=== PATIENT | female | born 1960 | race Caucasian/White ===

== ENCOUNTER → 2017-11-10 01:01 | Outpatient (CLI) | payer BC, SELFPAY ==
[2017-11-10 08:37] LABS: Absolute Basophil Count 0.03 k/cumm (0.0-0.2); Absolute Eosinophil Count 0.14 k/cumm (0.0-0.7); Absolute Lymphocyte Count 1.83 k/cumm (1.2-3.4); Absolute Monocyte Count 0.55 k/cumm (0.11-0.7); Absolute Neutrophil Count 1.76 k/cumm (1.2-6.7); Basophils % 0.7; Eosinophils % 3.2; HCT 42.1 % (36.0-46.0); Lymphocytes % 42.5; Mean Corp. HGB Concentration 33.3 g/dL (32.0-36.0); Mean Corpuscular Hemoglobin 31.2 pg (27.0-33.0); Mean Corpuscular Volume 93.8 fL (80-95); Mean Platelet Volume 10.7 fL (8.0-11.0); Monocytes % 12.8; Neutrophils % 40.8; Platelet Count 145 x1000/uL (130-400); RBC 4.49 m/cumm (4.00-5.20); RBC Distribution Width 13.9 % (11.7-14.6); White Blood Cell Count 4.31 k/cumm (4.4-10.8)
[2017-11-10 08:45] LABS: VALPROIC ACID 56.9 ug/mL (50-100)
[2017-11-10 09:41] LABS: ALT 20 U/L (12-78); AST 24 U/L (15-37); Albumin 3.2 g/dL (3.4-5.0); Alkaline Phosphatase 54 U/L (46-116); Anion Gap 9.6 mmol/L (3-11); BUN 26 mg/dL (7-18); Bilirubin, Total 0.4 mg/dL (0.2-1.0); CO2 27.4 mmol/L (21.0-32.0); CREATININE 1.27 mg/dL (0.55-1.02); Calcium 8.9 mg/dL (8.5-10.1); Chloride 107 mmol/L (98-107); Cholesterol 190 mg/dL (50-200); Estimated GFR 43.53 (mL/min/1.73m2); Glucose 94 mg/dL (70-100); HDL Cholesterol 70 mg/dL (40-60); LDL CHOLESTEROL 102 mg/dL (<100); Potassium 4.5 mmol/L (3.5-5.1); Sodium 144 mmol/L (136-145); TSH (W/Ref FT4) 0.51 uIU/mL (0.358-3.74); Total Protein 6.5 g/dL (6.4-8.2); Triglyceride 66 mg/dL (30-150)
== END ==
PROVIDERS: PCP Nurse Practitioner Family; Visit Provider Nurse Practitioner Family
DX: F31.81 Bipolar II disorder (principal); Z51.81 Encounter for therapeutic drug level monitoring; Z79.899 Other long term (current) drug therapy; R53.83 Other fatigue
CPT/HCPCS: 36415; 80053; 80061; 83721; 80164; 84443; 85025

== ENCOUNTER 2018-02-10 07:24 | Outpatient (CLI) | payer BC, SELFPAY ==
[2018-02-10 08:32] LABS: Abs Immature Grans 0.01 k/cumm (0.0-0.09); Absolute Basophil Count 0.03 k/cumm (0.0-0.2); Absolute Lymphocyte Count 1.58 k/cumm (1.2-3.4); Absolute Monocyte Count 0.45 k/cumm (0.11-0.7); Absolute Neutrophil Count 1.51 k/cumm (1.2-6.7); Basophils % 0.8; Eosinophils % 2.7; HCT 38.1 % (36.0-46.0); HGB 12.4 g/dL (12.0-15.5); Immature Grans % 0.3; Lymphocytes % 42.9; Mean Corp. HGB Concentration 32.5 g/dL (32.0-36.0); Mean Corpuscular Hemoglobin 29.4 pg (27.0-33.0); Mean Corpuscular Volume 90.3 fL (80-95); Mean Platelet Volume 10.2 fL (8.0-11.0); Monocytes % 12.2; Neutrophils % 41.1; Platelet Count 211 x1000/uL (130-400); RBC 4.22 m/cumm (4.00-5.20); RBC Distribution Width 15.1 % (11.7-14.6); White Blood Cell Count 3.68 k/cumm (4.4-10.8)
[2018-02-10 08:44] LABS: VALPROIC ACID 52.5 ug/mL (50-100)
[2018-02-10 08:55] LABS: ALT 19 U/L (12-78); AST 22 U/L (15-37); Albumin 3.1 g/dL (3.4-5.0); Alkaline Phosphatase 57 U/L (46-116); Anion Gap 6.1 mmol/L (3-11); BUN 17 mg/dL (7-18); Bilirubin, Total 0.4 mg/dL (0.2-1.0); CO2 28.9 mmol/L (21.0-32.0); CREATININE 1.32 mg/dL (0.55-1.02); Calcium 8.8 mg/dL (8.5-10.1); Chloride 106 mmol/L (98-107); Estimated GFR 41.63 (mL/min/1.73m2); Glucose 97 mg/dL (70-100); Potassium 4.4 mmol/L (3.5-5.1); Sodium 141 mmol/L (136-145); Total Protein 6.6 g/dL (6.4-8.2)
== END 2018-02-10 07:44 ==
PROVIDERS: PCP Nurse Practitioner Family; Visit Provider Nurse Practitioner Family
DX: F31.81 Bipolar II disorder (principal); Z51.81 Encounter for therapeutic drug level monitoring; Z79.899 Other long term (current) drug therapy
CPT/HCPCS: 36415; 80053; 80164; 85025

== ENCOUNTER 2018-04-18 19:15 | Outpatient (REF) | payer BC, SELFPAY | END 2018-04-18 19:35 | LOC: NCHCN 19:15 | PROVIDERS: PCP Nurse Practitioner Family; Visit Provider Nurse Practitioner Family | DX: N89.8 Other specified noninflammatory disorders of vagina (principal) | CPT/HCPCS: 87480; 87510; 87660 ==

== ENCOUNTER 2018-06-03 08:31 | Outpatient (CLI) | payer BC, SELFPAY ==
--- NOTE | 2018-06-03 08:23 | DI.RAD_ITS ---
SYMPTOM/DIAGNOSIS: LATERAL PAIN, F/U RT TKA RIGHT KNEE: Two views were obtained. There is a total knee joint replacement in position. The components appear well seated. No other significant bony abnormality is seen.
== END 2018-06-03 08:51 ==
PROVIDERS: PCP Nurse Practitioner Family; Visit Provider Student in an Organized Health Care Education/Training Program
DX: M25.561 Pain in right knee (principal); Z96.651 Presence of right artificial knee joint; Z47.1 Aftercare following joint replacement surgery
CPT/HCPCS: 73560

== ENCOUNTER 2018-08-19 03:55 | Outpatient (CLI) | payer BC, SELFPAY ==
[2018-08-19 08:59] LABS: HGB 13.4 g/dL (12.0-15.5); Mean Corp. HGB Concentration 32.7 g/dL (32.0-36.0); Mean Corpuscular Hemoglobin 31.5 pg (27.0-33.0); Mean Corpuscular Volume 96.2 fL (80-95); Mean Platelet Volume 10.2 fL (8.0-11.0); Platelet Count 157 x1000/uL (130-400); RBC 4.26 m/cumm (4.00-5.20); RBC Distribution Width 13.9 % (11.7-14.6)
[2018-08-19 09:40] LABS: ALT 20 U/L (12-78); AST 20 U/L (15-37); Albumin 3.2 g/dL (3.4-5.0); Alkaline Phosphatase 56 U/L (46-116); Anion Gap 6.2 mmol/L (3-11); BUN 19 mg/dL (7-18); Bilirubin, Total 0.3 mg/dL (0.2-1.0); CO2 29.8 mmol/L (21.0-32.0); CREATININE 1.22 mg/dL (0.55-1.02); Chloride 105 mmol/L (98-107); Estimated GFR 45.43 (mL/min/1.73m2); Glucose 92 mg/dL (70-100); Potassium 4.4 mmol/L (3.5-5.1); Sodium 141 mmol/L (136-145); Total Protein 6.5 g/dL (6.4-8.2)
[2018-08-19 16:51] LABS: VALPROIC ACID 56.4 ug/mL (50-100)
== END 2018-08-19 04:15 ==
PROVIDERS: PCP Nurse Practitioner Family; Visit Provider Nurse Practitioner Family
DX: F31.81 Bipolar II disorder (principal); Z79.899 Other long term (current) drug therapy; Z51.81 Encounter for therapeutic drug level monitoring
CPT/HCPCS: 36415; 80053; 85027; 80164

== ENCOUNTER 2019-01-17 13:18 | Outpatient (REF) | payer BC, SELFPAY ==
[2019-01-17 14:30] LABS: Abs Immature Grans 0.01 k/cumm (0.0-0.09); Absolute Basophil Count 0.04 k/cumm (0.0-0.2); Absolute Eosinophil Count 0.22 k/cumm (0.0-0.7); Absolute Lymphocyte Count 1.43 k/cumm (1.2-3.4); Absolute Monocyte Count 0.45 k/cumm (0.11-0.7); Absolute Neutrophil Count 1.67 k/cumm (1.2-6.7); Eosinophils % 5.8; HCT 39.4 % (36.0-46.0); HGB 12.9 g/dL (12.0-15.5); Immature Grans % 0.3; Lymphocytes % 37.4; Mean Corp. HGB Concentration 32.7 g/dL (32.0-36.0); Mean Corpuscular Hemoglobin 31.9 pg (27.0-33.0); Mean Corpuscular Volume 97.5 fL (80-95); Monocytes % 11.8; Neutrophils % 43.7; Platelet Count 212 x1000/uL (130-400); RBC 4.04 m/cumm (4.00-5.20); RBC Distribution Width 13.2 % (11.7-14.6); White Blood Cell Count 3.82 k/cumm (4.4-10.8)
[2019-01-17 14:45] LABS: VALPROIC ACID 58.9 ug/mL (50-100)
[2019-01-17 14:51] LABS: ALT 16 U/L (14-59); AST 22 U/L (15-37); Albumin 3.4 g/dL (3.4-5.0); Alkaline Phosphatase 57 U/L (46-116); Anion Gap 8.9 mmol/L (3-11); BUN 18 mg/dL (7-18); Bilirubin, Total 0.3 mg/dL (0.2-1.0); CO2 30.1 mmol/L (21.0-32.0); CREATININE 1.26 mg/dL (0.55-1.02); Calcium 8.8 mg/dL (8.5-10.1); Chloride 106 mmol/L (98-107); Estimated GFR 43.77 (mL/min/1.73m2); Glucose 93 mg/dL (70-100); Potassium 4.4 mmol/L (3.5-5.1); Sodium 145 mmol/L (136-145); TSH 3.45 uIU/mL (0.36-3.74); Total Protein 6.8 g/dL (6.4-8.2)
== END 2019-01-17 13:38 ==
LOC: NCHCN 13:18
PROVIDERS: PCP Nurse Practitioner Family; Visit Provider Nurse Practitioner Family
DX: F31.81 Bipolar II disorder (principal); Z51.81 Encounter for therapeutic drug level monitoring; Z79.899 Other long term (current) drug therapy; Z00.00 Encounter for general adult medical examination without abnormal findings; M62.81 Muscle weakness (generalized)
CPT/HCPCS: 80053; 80164; 84443; 85025

== ENCOUNTER 2019-05-05 12:07 | Outpatient (REF) | payer BC, SELFPAY ==
[2019-05-05 14:45] LABS: Absolute Basophil Count 0.02 k/cumm (0.0-0.2); Absolute Eosinophil Count 0.17 k/cumm (0.0-0.7); Absolute Lymphocyte Count 1.25 k/cumm (1.2-3.4); Absolute Monocyte Count 0.62 k/cumm (0.11-0.7); Absolute Neutrophil Count 2.01 k/cumm (1.2-6.7); Basophils % 0.5; Eosinophils % 4.2; HCT 42.7 % (36.0-46.0); Lymphocytes % 30.7; Mean Corp. HGB Concentration 32.8 g/dL (32.0-36.0); Mean Corpuscular Hemoglobin 31.3 pg (27.0-33.0); Mean Corpuscular Volume 95.3 fL (80-95); Mean Platelet Volume 11.7 fL (8.0-11.0); Monocytes % 15.2; Neutrophils % 49.4; Platelet Count 172 x1000/uL (130-400); RBC 4.48 m/cumm (4.00-5.20); RBC Distribution Width 13.7 % (11.7-14.6); White Blood Cell Count 4.07 k/cumm (4.4-10.8)
[2019-05-05 14:55] LABS: VALPROIC ACID 49.8 ug/mL (50-100)
[2019-05-05 15:01] LABS: ALT 20 U/L (14-59); AST 21 U/L (15-37); Albumin 3.4 g/dL (3.4-5.0); Alkaline Phosphatase 58 U/L (46-116); BUN 17 mg/dL (7-18); Bilirubin, Total 0.5 mg/dL (0.2-1.0); CREATININE 1.27 mg/dL (0.55-1.02); Calcium 8.5 mg/dL (8.5-10.1); Calculated LDL 117 mg/dL; Chloride 106 mmol/L (98-107); Cholesterol 182 mg/dL (<200); Estimated GFR 43.22 (mL/min/1.73m2); Glucose 99 mg/dL (74-106); HDL Cholesterol 56 mg/dL (40-60); Potassium 4.5 mmol/L (3.5-5.1); Sodium 142 mmol/L (136-145); Total Protein 6.6 g/dL (6.4-8.2); Triglyceride 48 mg/dL (<150)
== END 2019-05-05 12:27 ==
LOC: NCHCN 12:07
PROVIDERS: PCP Nurse Practitioner Family; Visit Provider Nurse Practitioner Family
DX: F31.9 Bipolar disorder, unspecified (principal); Z51.81 Encounter for therapeutic drug level monitoring; Z79.899 Other long term (current) drug therapy; Z00.00 Encounter for general adult medical examination without abnormal findings; Z13.220 Encounter for screening for lipoid disorders; Z13.228 Encounter for screening for other metabolic disorders
CPT/HCPCS: 80053; 80061; 80164; 85025

== ENCOUNTER 2019-05-30 02:07 | Outpatient (CLI) | payer BC, SELFPAY ==
--- NOTE | 2019-05-30 | DI.MAMMO_ITS ---
EXAM: MG MAMMO SCREENING CLINICAL HISTORY: SCREENING, Z12.31. TECHNIQUE: Bilateral full field digital CC and MLO mammographic images were obtained with 3D tomosyn thesis and utilizing computer aided detection (CAD). COMPARISON: Available for comparison. FINDINGS: Masses/Architectural Distortion: None seen. Microcalcifications: No suspicious pleomorphic-type are seen. Skin Thickening/Nipple Retraction: None. IMPRESSION: 1. No significant interval change with no specific features of malignancy noted. 2. Unless there is more urgent need, screening mammography is recommended, as per [place] guidelines. ACR BI-RAD Category- 1 Negative Breast Density - Category B - Scattered areas of fibroglandular density A negative radiographic report should not delay biopsy if a dominant or clinically suspicious mass is present. Up to ten percent of cancers are not identified on mammography. A negative report may reinforce clinical impression. Adenosis and dense breasts may obscure an underlying neoplasm. False positive reports average 6 to 10%. Patient will receive a letter notifying them of these results.
== END 2019-05-30 02:27 ==
PROVIDERS: PCP Nurse Practitioner Family; Visit Provider Nurse Practitioner Family
DX: Z12.31 Encounter for screening mammogram for malignant neoplasm of breast (principal)
CPT/HCPCS: 77063; 77067

== ENCOUNTER 2019-06-12 13:08 | Outpatient (REF) | payer BC, SELFPAY | END 2019-06-12 13:28 | LOC: LBN 13:08 | PROVIDERS: PCP Nurse Practitioner Family; Visit Provider Nurse Practitioner Family | DX: K13.79 Other lesions of oral mucosa (principal); R68.89 Other general symptoms and signs | CPT/HCPCS: 87070; 87205 ==

== ENCOUNTER 2019-06-12 13:10 | Outpatient (REF) | payer BC, SELFPAY ==
--- NOTE | 2019-06-12 09:30 | SKI_PTH ---
PATIENT: Stephanie Shannon LOC: [facility] U#:[id number] AGE/SX: 59/F ROOM: RE06/12/[address]: Palomo Arvizu : 1960 BED: DIS: 06/12/2019 SPEC #: [id number] RECD: 06/12/19 17:27 STATUS: AKBAR MARTINES #: [id number] NEGRO: 06/12/19 09:[address]: Palomo Arvizu DEPT: Surgical Specimen RECD BY: Anna Andino Tissues: 1 - SKIN BIOPSY(SHAVE/PUNCH) Procedures: SKIN LEVEL 4 Comments: [id number]
== END 2019-06-12 13:30 ==
LOC: NCHCN 13:10
PROVIDERS: PCP Nurse Practitioner Family; Visit Provider Nurse Practitioner Family
DX: B07.8 Other viral warts (principal)
CPT/HCPCS: 88305

== ENCOUNTER 2019-09-08 09:28 | Outpatient (CLI) | payer BC, SELFPAY ==
--- NOTE | 2019-09-08 11:10 | DI.RAD_ITS ---
EXAM: XR KNEE LT 3V AP,LAT,LARISSA CLINICAL HISTORY: LT KNEE PAIN, M25.562. TECHNIQUE: 2D digital imaging was performed. COMPARISON: CR XR knee RT 2V AP,lat from 06/03/2018 FINDINGS: There is prominent chondrocalcinosis. There is mild periarticular spurring. There is mild medial fe moral tibial joint space narrowing. There is there is spurring at the articular aspect of the patell a and patellofemoral joint space narrowing. There is a small joint effusion.. IMPRESSION: Degenerative changes and chondrocalcinosis. DATA REPOSITORY: RADIATION DOSE DELIVERED:
== END 2019-09-08 09:48 ==
PROVIDERS: PCP Nurse Practitioner Family; Visit Provider Nurse Practitioner Family
DX: M25.562 Pain in left knee (principal); M25.462 Effusion, left knee; M17.12 Unilateral primary osteoarthritis, left knee
CPT/HCPCS: 73562

== ENCOUNTER 2020-02-23 08:59 | Outpatient (REF) | payer BC, SELFPAY ==
[2020-02-23 21:54] LABS: Abs Immature Grans 0.02 10^3/uL (0.0-0.06); Absolute Basophil Count 0.03 10^3/uL (0.0-0.2); Absolute Eosinophil Count 0.19 10^3/uL (0.0-0.7); Absolute Lymphocyte Count 1.62 10^3/uL (1.2-3.4); Absolute Monocyte Count 0.58 10^3/uL (0.1-0.8); Basophils % 0.7; Eosinophils % 4.2; HCT 40.8 % (36.0-46.0); HGB 13.3 g/dL (11.2-15.7); Immature Grans % 0.4; Lymphocytes % 35.7; MCH 30.9 pg (27.0-33.0); MCHC 32.6 % (32.0-36.0); MCV 94.9 fL (80-95); MPV 11.2 fL (8.0-11.0); Monocytes % 12.8; Neutrophils % 46.2; Nucleated RBC 0 %; Platelet Count 208 10^3/uL (130-400); RDW 13.4 % (11.7-14.6); RDW-SD 46.9 fL; WBC 4.54 10^3/uL (4.4-10.8)
[2020-02-23 22:33] LABS: ALT 17 U/L (14-59); AST 25 U/L (15-37); Albumin 3.3 g/dL (3.4-5.0); Alkaline Phosphatase 61 U/L (46-116); Anion Gap 8.6 mmol/L (3-11); BUN 20 mg/dL (7-18); Bilirubin, Total 0.3 mg/dL (0.2-1.0); CO2 28.4 mmol/L (21.0-32.0); CREATININE 1.16 mg/dL (0.55-1.02); Calcium 8.9 mg/dL (8.5-10.1); Calculated LDL 103 mg/dL (<100); Chloride 106 mmol/L (98-107); Cholesterol 179 mg/dL (<200); Estimated GFR 47.98 (mL/min/1.73m2); Glucose 88 mg/dL (74-106); HDL Cholesterol 67 mg/dL (40-60); Potassium 4.6 mmol/L (3.5-5.1); Sodium 143 mmol/L (136-145); Total Protein 6.7 g/dL (6.4-8.2); Triglyceride 49 mg/dL (<150)
[2020-02-23 23:17] LABS: VALPROIC ACID 58.3 ug/mL (50-100)
== END 2020-02-23 09:19 ==
LOC: NCHCN 08:59
PROVIDERS: PCP Nurse Practitioner Family; Visit Provider Nurse Practitioner Family
DX: F31.81 Bipolar II disorder (principal); Z79.899 Other long term (current) drug therapy; Z51.81 Encounter for therapeutic drug level monitoring; Z00.00 Encounter for general adult medical examination without abnormal findings
CPT/HCPCS: 80053; 80061; 80164; 85025

== ENCOUNTER 2020-06-21 15:12 | Outpatient (REF) | payer BC, SELFPAY ==
[2020-06-21 15:48] LABS: ALT 22 U/L (14-59); AST 24 U/L (15-37); Albumin 3.2 g/dL (3.4-5.0); Alkaline Phosphatase 65 U/L (46-116); Anion Gap 9.1 mmol/L (3-11); BUN 23 mg/dL (7-18); Bilirubin, Total 0.3 mg/dL (0.2-1.0); CO2 27.9 mmol/L (21.0-32.0); CREATININE 1.2 mg/dL (0.55-1.02); Calcium 9.1 mg/dL (8.5-10.1); Chloride 106 mmol/L (98-107); Estimated GFR 45.98 (mL/min/1.73m2); Glucose 83 mg/dL (74-106); Potassium 4.4 mmol/L (3.5-5.1); Sodium 143 mmol/L (136-145); TSH (W/Ref FT4) 1.06 uIU/mL (0.36-3.74); Total Protein 6.7 g/dL (6.4-8.2)
[2020-06-21 16:01] LABS: Folate > 20.0 ng/mL (8.6-20.0)
[2020-06-24 11:53] LABS: HIV-1/2 Ag & Ab Screen Negative (Negative)
== END 2020-06-21 15:13 | disposition home or self-care (01) ==
LOC: NCHCN 15:12
PROVIDERS: PCP Nurse Practitioner Family; Visit Provider Nurse Practitioner Family
DX: F31.9 Bipolar disorder, unspecified (principal); E03.9 Hypothyroidism, unspecified; Z11.4 Encounter for screening for human immunodeficiency virus [HIV]
CPT/HCPCS: 80053; 87389; 82746; 84443

== ENCOUNTER 2020-12-25 11:15 | Outpatient (CLI) | payer BC, SELFPAY ==
--- NOTE | 2020-12-25 | DI.RAD_ITS ---
Exam(s) XR KNEE LT 3V AP,LAT,LARISSA EXAM: XR KNEE LT 3V AP,LAT,LARISSA CLINICAL HISTORY: LT KNEE PAIN M25.562. TECHNIQUE: 2D digital imaging was performed. COMPARISON: CR XR KNEE LT 3V AP,LAT,LARISSA from 09/08/2019 FINDINGS: Moderate degenerative changes are seen in the left knee with joint space narrowing and periarticular spurring present. There is chondrocalcinosis in the femoral tibial joint. The bones are normally mi neralized. No acute fracture or subluxation is present. No significant joint effusion is seen. The soft tissues are unremarkable. IMPRESSION: Moderate degenerative changes of the left knee. DATA REPOSITORY: RADIATION DOSE DELIVERED:
== END 2020-12-25 11:35 ==
PROVIDERS: PCP Nurse Practitioner Family; Visit Provider Physician Assistant Medical
DX: M25.562 Pain in left knee (principal); M17.12 Unilateral primary osteoarthritis, left knee
CPT/HCPCS: 73562

== ENCOUNTER 2021-06-16 18:18 | Outpatient (REF) | payer BC, SELFPAY ==
[2021-06-16 19:57] LABS: VALPROIC ACID 39.7 ug/mL
[2021-06-16 20:02] LABS: HCT 36.2 % (36.0-46.0); HGB 11.3 g/dL (11.2-15.7); MCH 25.9 pg (27.0-33.0); MCHC 31.2 % (32.0-36.0); MCV 82.8 fL (80-95); MPV 10.8 fL (8.0-11.0); Platelet Count 240 10^3/uL (130-400); RBC 4.37 10^6/uL (3.93-5.22); RDW 16.7 % (11.7-14.6); RDW-SD 50.4 fL
[2021-06-16 20:06] LABS: TSH 2.58 uIU/mL (0.36-3.74)
[2021-06-16 20:11] LABS: Folate > 20.0 ng/mL (8.6-20.0)
== END 2021-06-16 18:19 | disposition home or self-care (01) ==
LOC: NCHCN 18:18
PROVIDERS: Nurse Practitioner Psychiatric/Mental Health; PCP Nurse Practitioner Family; Visit Provider Physician Assistant
DX: E03.9 Hypothyroidism, unspecified (principal); F31.81 Bipolar II disorder; Z51.81 Encounter for therapeutic drug level monitoring; Z79.899 Other long term (current) drug therapy
CPT/HCPCS: 85027; 80164; 82746; 83735; 84443

== ENCOUNTER 2021-06-16 18:42 | Outpatient (REF) | payer BC, SELFPAY | END 2021-06-16 18:43 | disposition home or self-care (01) | LOC: NCHCN 18:42 | PROVIDERS: PCP Nurse Practitioner Family; Visit Provider Physician Assistant ==

== ENCOUNTER 2021-06-19 16:04 | Outpatient (REF) | payer BC, SELFPAY ==
[2021-06-19 14:44] LABS: ALT 25 U/L (14-59); AST 28 U/L (15-37); Albumin 3.2 g/dL (3.4-5.0); Alkaline Phosphatase 74 U/L (46-116); Anion Gap 9.2 mmol/L (3-11); BUN 20 mg/dL (7-18); Bilirubin, Total 0.3 mg/dL (0.2-1.0); CO2 28.8 mmol/L (21.0-32.0); CREATININE 1.2 mg/dL (0.55-1.02); Calcium 8.8 mg/dL (8.5-10.1); Calculated LDL 107 mg/dL (<100); Chloride 104 mmol/L (98-107); Cholesterol 181 mg/dL (<200); Estimated GFR 45.83 (mL/min/1.73m2); Glucose 76 mg/dL (74-106); HDL Cholesterol 62 mg/dL (40-60); Potassium 4.2 mmol/L (3.5-5.1); Sodium 142 mmol/L (136-145); Triglyceride 64 mg/dL (<150)
== END 2021-06-19 16:05 | disposition home or self-care (01) ==
LOC: NCHCN 16:04
PROVIDERS: PCP Nurse Practitioner Family; Visit Provider Physician Assistant
DX: F31.9 Bipolar disorder, unspecified (principal)
CPT/HCPCS: 80053; 80061

== ENCOUNTER 2021-06-27 00:36 | Outpatient (CLI) | payer BC, SELFPAY ==
--- NOTE | 2021-06-27 | DI.RAD_ITS ---
Exam(s) RF BARIUM SWALLOW EXAM: RF BARIUM SWALLOW CLINICAL HISTORY: CHRONIC DYSPHAGIA,R13.10 TECHNIQUE: 2D and realtime digital imaging was performed. COMPARISON: CR ABDOMEN 2 VIEW FLAT, UPRIGHT from 03/23/2014 FINDINGS: Preliminary films of the chest and neck are unremarkable. Barium was ingested and showed grossly nor mal hypo pharyngeal motility. Esophagus shows normal motility and mucosal appearance. 12 millimeter barium tablet passed easily through the esophagus into the stomach. IMPRESSION: Negative barium swallow. RADIATION DOSE DELIVERED: tom Calles=23.8 mGy
[2021-06-27] MEDS: Barium Sulfate 60% W/V 355 ML BTL PO (11:57)
== END 2021-06-27 00:56 ==
PROVIDERS: PCP Nurse Practitioner Family; Visit Provider Physician Assistant
DX: R13.10 Dysphagia, unspecified (principal)
CPT/HCPCS: 74221

== ENCOUNTER → 2021-09-03 03:55 | Outpatient (CLI) | payer BC, SELFPAY ==
--- NOTE | 2021-09-03 17:50 | DI.MAMMO_ITS ---
Exam(s) MAMMO SCREENING EXAM: MAMMO SCREENING CLINICAL HISTORY: SCREENING FOR BREAST CANCER Z12.39 TECHNIQUE: Bilateral full field digital CC and MLO mammographic images were obtained with 3D tomosyn thesis and utilizing computer aided detection (CAD). COMPARISON: Available for comparison. FINDINGS: Masses/Architectural Distortion: There is a question of a asymmetric density projected over the pecto ralis muscle on the MLO view. This area should be further evaluated with spot compression view. Microcalcifications: No suspicious pleomorphic-type are seen. Skin Thickening/Nipple Retraction: None. IMPRESSION: 1. Question of asymmetric density projected over the pectoralis muscle on the left MLO view. 2. Spot compression views requested for further evaluation. Ultrasound may be indicated at that time . BI-RADS Category 0 - Assessment Incomplete: Need additional imaging evaluation Breast Density - Category B - Scattered areas of fibroglandular density Breast density category C or D implies that the patient has dense breast tissue. Dense breast tissue is very common and is not abnormal but dense breast tissue can make it harder to find cancer on a ma mmogram. Also, dense breast tissue may increase their breast cancer risk. This information about the result of the mammogram report was provided to the patient to raise their awareness. Use this report when you speak with the patient about their risks for breast cancer, which includes their family hist ory. At that time, you may recommend for more screening tests (Ultrasound or MRI) as they might be us eful based on their risk. A negative radiographic report should not delay biopsy if a dominant or clinically suspicious mass is present. Up to ten percent of cancers are not identified on mammography. A negative report may reinforce clinical impression. Adenosis and dense breasts may obscure an underlying neoplasm. False positive reports average 6 to 10%. Patient will receive a letter notifying them of these results.
== END ==
PROVIDERS: PCP Physician Assistant; Visit Provider Physician Assistant
DX: Z12.31 Encounter for screening mammogram for malignant neoplasm of breast (principal); R92.8 Other abnormal and inconclusive findings on diagnostic imaging of breast
CPT/HCPCS: 77063; 77067

== ENCOUNTER → 2021-09-11 01:33 | Outpatient (CLI) | payer BC, SELFPAY ==
--- NOTE | 2021-09-11 | DI.US_ITS ---
Exam(s) MG MAMMO SCREEN CALL BACK UNI US BREAST LT COMPLETE EXAM: MG MAMMO SCREEN CALL BACK UNI -LEFT AND COMPLETE LEFT BREAST ULTRASOUND CLINICAL HISTORY: F/U ABNL MAMMO, ? ASYMMETRIC DENSITY OVER PECTORALIS MUSCLE. TECHNIQUE: Unilateral spot mammographic images obtained with 3D tomosynthesisand utilizing computer aided detection (CAD). . Complete LEFT breast Ultrasound was also performed, including all 4 quadrants, the retroareolar regio n, and the ipsilateral axilla. COMPARISON: Prior mammograms were reviewed. This additional imaging was performed due to findings described on the recent screening mammogram of 09/03/2021. FINDINGS: DIAGNOSTIC LEFT BREAST MAMMOGRAM: Additional mammographic views performed todayrender this area less concerning.This additional view ap pears to dissipate the finding up again suggest wall described on the recent screening mammogram. COMPLETE LEFT BREAST ULTRASOUND: Ultrasound performed today reveals a 3 millimeter benign microcyst at the 3 o'clock position 1 o'cloc k position there are 2 adjacent deep findings which upon careful scanning have more the appearance of probable asymmetric deep tissue more so than actual true concerning nodules. Larger of these 2 larisa cent findings measures 9 x 4 millimeters. The smaller measures 4 x 2 millimeters. Both exhibit slig htly increased through transmission without concerning decreased through transmission. No other focal ultrasound findings in the 4 quadrants. In the left axilla there is a 1.3 cm lymph no de noted.. IMPRESSION: 1. No mammographic evidence of malignancy in the left breast. 2. Incidental ultrasound findings at the 1 o'clock position of the left breast as described above whi ch require follow-up ultrasound in 6 months. 3. 1.3 cm lymph node in the left axilla, probably benign Appropriate follow-up , as discussed by myself with the patient today is repeat left breast ultrasoun d in 6 months. The patient was informed of these findings and recommendations prior to leaving the department today. BI-RADS Category 3 - 6 month - Probably Benign Finding: Recommend follow-up mammography in 6 months Breast Density - Category B - Scattered areas of fibroglandular density Breast density Category C or D implies that the patient has dense breast tissue. Dense breast tissue can make it harder to find cancer on a mammogram. Dense breast tissue is also associated with an incr eased risk of breast cancer. This information about the result of the mammogram report was provided to the patient to raise their awareness. Use this report when you speak with the patient about their risks for breast cancer, which includes their family history. At that time, you may recommend additional screening tests (Ultrasoun d or MRI) as these tests may add significant information. A negative radiographic report should not delay biopsy if a dominant or clinically suspicious mass is present. Up to ten percent of cancers are not identified on mammography. A negative report may reinforce clinical impression. Adenosis and dense breasts may obscure an underlying neoplasm. False positive reports average 6 to 10%. Patient will receive a letter notifying them of these results.
== END ==
PROVIDERS: PCP Physician Assistant; Visit Provider Physician Assistant
DX: Z12.31 Encounter for screening mammogram for malignant neoplasm of breast (principal); R92.8 Other abnormal and inconclusive findings on diagnostic imaging of breast; N60.02 Solitary cyst of left breast; N60.82 Other benign mammary dysplasias of left breast; N63.32 Unspecified lump in axillary tail of the left breast
CPT/HCPCS: 76642; 77063; 77067

== ENCOUNTER → 2021-10-03 12:01 | Outpatient (CLI) | payer BC, SELFPAY ==
--- NOTE | 2021-10-03 | DI.RAD_ITS ---
Exam(s) XR KNEE RT 3V AP,LAT,LARISSA EXAM: XR KNEE RT 3V AP,LAT,LARISSA CLINICAL HISTORY: RIGHT KNEE JOINT PAIN--M25.561. TECHNIQUE: 2D digital imaging was performed of the right knee. Three views obtained. AP, lateral an d PA tunnel views were obtained. COMPARISON: CR XR knee RT 2V AP,lat from 06/03/2018 FINDINGS: BONES: No acute fracture is present. No bony destructive lesion is seen. JOINTS: There are stable postsurgical changes of a right total knee replacement. No joint effusion i s seen. SOFT TISSUE: Normal. IMPRESSION: No acute abnormality. DATA REPOSITORY: RADIATION DOSE DELIVERED:
== END ==
PROVIDERS: PCP Physician Assistant; Visit Provider Physician Assistant
DX: M25.561 Pain in right knee (principal); Z96.651 Presence of right artificial knee joint
CPT/HCPCS: 73562

== ENCOUNTER 2021-10-31 08:10 | Outpatient (CLI) | payer OTHER, SELFPAY ==
--- NOTE | 2021-10-31 07:59 | DI.RAD_ITS ---
Exam(s) XR KNEE RT 1V EXAM: XR KNEE RT 1V CLINICAL HISTORY: right knee pain, merchant view only. TECHNIQUE: 2D digital imaging was performed. One views. COMPARISON: CR XR KNEE RT 3V AP,LAT,LARISSA from 10/03/2021 FINDINGS: A single Merchant view was performed. A total knee prosthesis is noted. The patella appears normall y positioned. DATA REPOSITORY: RADIATION DOSE DELIVERED:
== END 2021-10-31 08:11 | disposition home or self-care (01) ==
LOC: DIORS 08:10
PROVIDERS: PCP Physician Assistant; Referring Provider Physician Assistant; Visit Provider Student in an Organized Health Care Education/Training Program
DX: M25.561 Pain in right knee (principal)
CPT/HCPCS: 73560

== ENCOUNTER 2021-12-23 14:42 | Outpatient (REF) | payer OTHER, SELFPAY ==
[2021-12-23 18:37] LABS: VALPROIC ACID 70.6 ug/mL
== END 2021-12-23 14:43 | disposition home or self-care (01) ==
LOC: LBN 14:42
PROVIDERS: PCP Physician Assistant; Visit Provider Nurse Practitioner Psychiatric/Mental Health
DX: F31.81 Bipolar II disorder (principal)
CPT/HCPCS: 80164

== ENCOUNTER → 2022-01-09 10:55 | Outpatient (CLI) | payer OTHER, SELFPAY ==
--- NOTE | 2022-01-09 11:32 | DI.RAD_ITS ---
Exam(s) XR FOOT RT COMPLETE EXAM: XR FOOT RT COMPLETE CLINICAL HISTORY: RT HEEL PAIN M79.671 TECHNIQUE: COMPARISON: CR RIGHT FOOT COMPLETE from 01/18/2015 FINDINGS: Three views were obtained. There is a hallux valgus deformity which is moderate. There are mild sec ondary degenerative changes at the 1st MTP joint. There appear to be fusions of the PIP joints of the 2nd and 3rd toes. There is subluxation at the PI P joint of the 5th toe. Alignment of the hindfoot and midfoot appears within normal limits. No other significant bony abnorm ality seen. IMPRESSION: RADIATION DOSE DELIVERED: Total DLP
== END ==
PROVIDERS: PCP Physician Assistant; Visit Provider Physician Assistant Medical
DX: M20.11 Hallux valgus (acquired), right foot (principal); S93.101A Unspecified subluxation of right toe(s), initial encounter; X58.XXXA Exposure to other specified factors, initial encounter
CPT/HCPCS: 73630

== ENCOUNTER 2022-10-09 15:36 | Outpatient (REF) | payer OTHER, SELFPAY ==
[2022-10-09 18:45] LABS: HCT 43.8 % (36.0-46.0); HGB 13.9 g/dL (11.2-15.7); MCH 31.1 pg (27.0-33.0); MCHC 31.7 % (32.0-36.0); MCV 98 fL (80-95); Platelet Count 178 10^3/uL (130-400); RBC 4.47 10^6/uL (3.93-5.22); RDW 13.7 % (11.7-14.6); RDW-SD 50.1 fL; WBC 4.66 10^3/uL (4.4-10.8)
[2022-10-09 19:05] LABS: ALT 25 U/L (14-59); AST 30 U/L (15-37); Alkaline Phosphatase 66 U/L (46-116); BUN 25 mg/dL (7-18); Bilirubin, Total 0.4 mg/dL (0.2-1.0); CREATININE 1.3 mg/dL (0.55-1.02); Calcium 8.8 mg/dL (8.5-10.1); Calculated LDL 116 mg/dL (<100); Chloride 108 mmol/L (98-107); Cholesterol 192 mg/dL (<200); Estimated GFR 46.78 (mL/min/1.73m2); Glucose 86 mg/dL (74-106); HDL Cholesterol 64 mg/dL (40-60); Potassium 4.5 mmol/L (3.5-5.1); Sodium 144 mmol/L (136-145); Total Protein 6.9 g/dL (6.4-8.2); Triglyceride 61 mg/dL (<150)
== END 2022-10-09 15:37 | disposition home or self-care (01) ==
LOC: NCHCN 15:36
PROVIDERS: PCP Physician Assistant; Visit Provider Physician Assistant
DX: E03.9 Hypothyroidism, unspecified (principal); F31.31 Bipolar disorder, current episode depressed, mild
CPT/HCPCS: 80053; 80061; 85027; 84443

== ENCOUNTER 2022-10-14 01:53 | Outpatient (CLI) | payer OTHER, SELFPAY ==
--- NOTE | 2022-10-14 09:30 | DI.MAMMO_ITS ---
Exam(s) MAMMO DIAGNOSTIC BI EXAM: MAMMO DIAGNOSTIC BI CLINICAL HISTORY: 6-MO F/U ABNL MAMMOGRAPHY, R92.8 TECHNIQUE: Mammograms were interpreted according to the usual protocol including computer analysis w ith CAD system, tomosynthesis and C-view imaging. COMPARISON: 2013 through 2021, six-month follow-up of the left breast and annual screening of the ri ght breast. FINDINGS: The breasts are composed of scattered fibroglandular densities, Breast Density category B. No suspicious masses or suspicious microcalcifications are seen. The previously questioned density o verlying the left pectoral muscle is not seen on current exam. No skin thickening or abnormal axillary lymph nodes are seen. There has been no significant change from prior exams. IMPRESSION: BI-RADS Category 1, Negative mammogram Yearly screening mammography is recommended. Breast Density - Category B, scattered fibroglandular densities. A negative radiographic report should not delay biopsy if a dominant or clinically suspicious mass is present. Up to ten percent of cancers are not identified on mammography. A negative report may reinforce clinical impression. Adenosis and dense breasts may obscure an underlying neoplasm. False positive reports average 6 to 10%. Patient will receive a letter notifying them of these results.
== END 2022-10-14 02:13 ==
LOC: DI 01:53
PROVIDERS: PCP Physician Assistant; Visit Provider Physician Assistant
DX: Z12.31 Encounter for screening mammogram for malignant neoplasm of breast (principal)
CPT/HCPCS: 77062; 77066; G0279

== ENCOUNTER → 2023-07-14 03:52 | Outpatient (CLI) | payer OTHER, SELFPAY ==
--- NOTE | 2023-07-14 10:25 | DI.RAD_ITS ---
Exam(s) XR FOOT LT COMPLETE EXAM: XR FOOT LT COMPLETE CLINICAL HISTORY: Left foot pain,M79.672. TECHNIQUE: 2D digital imaging was performed of the left foot. Three images were obtained. AP, obli que and lateral views were obtained. COMPARISON: No exams were available for comparison FINDINGS: BONES: No acute fracture is present. No bony destructive lesion is seen. Chronic appearing deformitie s are seen at the heads of the proximal phalanges of the 4th and 5th toes. JOINTS: No dislocation present. There is fusion of the PIP joints of the 2nd and 3rd toes. Degenerat ruperto changes are seen at the interphalangeal joints of the 4th and 5th toes. SOFT TISSUE: Dystrophic calcification is seen around the 1st MTP joint. IMPRESSION: 1. Arthrosis of the left foot. 2. Soft tissue calcifications seen around the 1st metatarsophalangeal joint. An inflammatory arthrit is should be considered. DATA REPOSITORY: RADIATION DOSE DELIVERED:
== END ==
PROVIDERS: PCP Physician Assistant; Visit Provider Podiatrist
DX: M79.672 Pain in left foot (principal); M25.872 Other specified joint disorders, left ankle and foot; M19.072 Primary osteoarthritis, left ankle and foot
CPT/HCPCS: 73630

== ENCOUNTER 2023-10-11 16:15 | Outpatient (REF) | payer OTHER, SELFPAY ==
[2023-10-11 15:51] LABS: Abs Immature Grans 0.06 10^3/uL (0.0-0.06); Absolute Basophil Count 0.04 10^3/uL (0.0-0.2); Absolute Eosinophil Count 0.19 10^3/uL (0.0-0.7); Absolute Lymphocyte Count 1.31 10^3/uL (1.2-3.4); Absolute Monocyte Count 0.98 10^3/uL (0.1-0.8); Basophils % 0.5 %; Eosinophils % 2.3 %; HCT 40.6 % (36.0-46.0); HGB 13.2 g/dL (11.2-15.7); Immature Grans % 0.7 %; MCH 31.4 pg (27.0-33.0); MCHC 32.5 % (32.0-36.0); MCV 97 fL (80-95); MPV 9.6 fL (8.0-11.0); Neutrophils % 68.5 %; Platelet Count 276 10^3/uL (130-400); RDW 13.4 % (11.7-14.6); RDW-SD 47.8 fL; WBC 8.18 10^3/uL (4.4-10.8)
[2023-10-11 16:14] LABS: ALT 17 U/L (14-59); AST 18 U/L (15-37); Albumin 2.9 g/dL (3.4-5.0); Alkaline Phosphatase 81 U/L (46-116); Anion Gap 8.1 mmol/L (3-11); BUN 19 mg/dL (7-18); Bilirubin, Total 0.36 mg/dL (0.2-1.0); CO2 27.9 mmol/L (21.0-32.0); CREATININE 1.1 mg/dL (0.55-1.02); Calcium 8.8 mg/dL (8.5-10.1); Chloride 107 mmol/L (98-107); Estimated GFR 56.81 (mL/min/1.73m2); Glucose 96 mg/dL (74-106); Potassium 4.4 mmol/L (3.5-5.1); Sodium 143 mmol/L (136-145); TSH 5.28 uIU/Ml (0.36-3.74); Total Protein 6.7 g/dL (6.4-8.2)
== END 2023-10-11 16:16 | disposition home or self-care (01) ==
LOC: NCHCN 16:15
PROVIDERS: PCP Physician Assistant; Visit Provider Physician Assistant
DX: E03.9 Hypothyroidism, unspecified (principal); N28.9 Disorder of kidney and ureter, unspecified
CPT/HCPCS: 80053; 84443; 85025

== ENCOUNTER → 2023-10-20 11:18 | Outpatient (CLI) | payer OTHER, SELFPAY ==
--- NOTE | 2023-10-20 | DI.MAMMO_ITS ---
Exam(s) MAMMO SCREENING EXAM: MAMMO SCREENING CLINICAL HISTORY: Screening, Z12.31 TECHNIQUE: Mammograms were interpreted according to the usual protocol including computer analysis w [employer] CAD system, tomosynthesis and C-view imaging. COMPARISON: 2013 through 2022 FINDINGS: The breasts are composed of scattered fibroglandular densities, Breast Density category B. No suspicious masses or suspicious microcalcifications are seen. No skin thickening or abnormal axillary lymph nodes are seen. There has been no significant change from prior exams. IMPRESSION: BI-RADS Category 1, Negative mammogram Yearly screening mammography is recommended. Breast Density - Category B, scattered fibroglandular densities. A negative radiographic report should not delay biopsy if a dominant or clinically suspicious mass is present. Up to ten percent of cancers are not identified on mammography. A negative report may reinforce clinical impression. Adenosis and dense breasts may obscure an underlying neoplasm. False positive reports average 6 to 10%. Patient will receive a letter notifying them of these results.
== END ==
PROVIDERS: PCP Physician Assistant; Visit Provider Physician Assistant
DX: Z12.31 Encounter for screening mammogram for malignant neoplasm of breast (principal)
CPT/HCPCS: 77063; 77067

== ENCOUNTER 2023-12-01 23:43 | Outpatient (REF) | payer OTHER, SELFPAY ==
[2023-12-01 22:04] LABS: Microalb ug/mg Crea 10.3 ug/mg Cr
== END 2023-12-01 23:44 | disposition home or self-care (01) ==
LOC: NCHCN 23:43
PROVIDERS: PCP Physician Assistant; Visit Provider Student in an Organized Health Care Education/Training Program
DX: E88.09 Other disorders of plasma-protein metabolism, not elsewhere classified (principal)
CPT/HCPCS: 82043; 82570

== ENCOUNTER 2023-12-07 10:16 | Outpatient (CLI) | payer OTHER, SELFPAY ==
--- NOTE | 2023-12-07 | DI.CT_ITS ---
Exam(s) CT CHEST W EXAM: CT CHEST W CLINICAL HISTORY: STANDARD CHEST XRAY ABNORMAL, R93.89. TECHNIQUE: Multi planar reconstructions were performed. CONTRAST MATERIAL: Omnipaque 350; 75 cc COMPARISON: CR XR CHEST 2V PA LATERAL from 12/07/2023 FINDINGS: CHEST: LUNGS: There is a large area of concerning infiltrate in the right upper lobe involving both anterior and posterior segments and extending from the hilum out to the pleural surface. There does not appe ar to be involvement of the right lower lobe and right middle lobe and there is no associated pleural effusion. There is no overlying rib destruction. There are no significant focal findings in the opposite-left lung. There are no pleural effusions. MEDIASTINUM: There is no hilar nor mediastinal adenopathy. Visualized thyroid unremarkable. CARDIAC: Heart size is normal. There is no pericardial effusion.Caliber of the thoracic aorta is wit hin normal limits. VISUALIZED UPPER ABDOMEN:There are no significant adrenal masses. OSSEOUS: No significant osseous lesions.No fractures evident.. IMPRESSION: 1. Large heterogeneous right upper lobe infiltrate as described above, not associated with pleural ef fusion nor obvious hilar/mediastinal adenopathy. Nevertheless, still suspicious for malignancy in ad dition to infectious etiology. Close imaging follow-up recommended to resolution. This may require biopsy. 2. No significant findings in the opposite-left lung. RADIATION DOSE DELIVERED: 102.36mGy.cm Total DLP DATA REPOSITORY: All CT scans at this facility are submitted to the National Radiology Data Registry (NRDR) Dose Index Registry (DIR) with the [employer] (ACR). RADIATION OPTIMIZATION: All CT scans at this facility use at least one of these dose optimization te chniques: automated exposure control; mA and/or kV adjustment per patient size (includes targeted exa ms where dose is matched to clinical indication); or iterative reconstruction.
--- NOTE | 2023-12-07 09:32 | DI.RAD_ITS ---
Exam(s) XR CHEST 2V PA LATERAL EXAM: XR CHEST 2V PA LATERAL CLINICAL HISTORY: CHRONIC COUGH, R05.3. TECHNIQUE: 2D digital imaging was performed. COMPARISON: CR,RF RF BARIUM SWALLOW from 06/27/2021 FINDINGS: 2 views: Heart size is normal. The mediastinum is not widened. There is now significant area infiltrate in the right upper lobe extending to pleural surface and emma suring approximately 7 by 4 cm. Infiltrate versus mass. No associated pleural effusion. The opposi te-left lung is clear. IMPRESSION: Large infiltrate versus neoplastic mass in the right upper lobe. Chest CT scan recommended. DATA REPOSITORY: RADIATION DOSE DELIVERED:
[2023-12-07 10:07] LABS: Abs Immature Grans 0.09 10^3/uL (0.0-0.06); Absolute Basophil Count 0.03 10^3/uL (0.0-0.2); Absolute Eosinophil Count 0.24 10^3/uL (0.0-0.7); Absolute Lymphocyte Count 0.87 10^3/uL (1.2-3.4); Absolute Neutrophil Count 10.79 10^3/uL (1.2-6.7); Basophils % 0.2 %; Eosinophils % 1.8 %; HCT 36.6 % (36.0-46.0); HGB 11.8 g/dL (11.2-15.7); Immature Grans % 0.7 %; Lymphocytes % 6.5 %; MCH 30.3 pg (27.0-33.0); MCHC 32.2 % (32.0-36.0); MCV 94 fL (80-95); MPV 8.7 fL (8.0-11.0); Monocytes % 10.4 %; Neutrophils % 80.4 %; Platelet Count 287 10^3/uL (130-400); RDW 13.3 % (11.7-14.6); RDW-SD 45.7 fL; WBC 13.42 10^3/uL (4.4-10.8)
[2023-12-07 10:34] LABS: ALT 11 U/L (14-59); AST 10 U/L (15-37); Albumin 2.4 g/dL (3.4-5.0); Alkaline Phosphatase 84 U/L (46-116); Anion Gap 6.5 mmol/L (3-11); BUN 19 mg/dL (7-18); Bilirubin, Total 0.33 mg/dL (0.2-1.0); CO2 29.5 mmol/L (21.0-32.0); CREATININE 1.1 mg/dL (0.55-1.02); Chloride 103 mmol/L (98-107); Estimated GFR 56.81 (mL/min/1.73m2); Glucose 100 mg/dL (74-106); Potassium 4.3 mmol/L (3.5-5.1); Sodium 139 mmol/L (136-145); Total Protein 7.4 g/dL (6.4-8.2)
[2023-12-07] MEDS: Normal Saline - Diluent 50 ML VIAL IJ (15:30)
[2023-12-07] MEDS: Omnipaque 350 MG/ML 100 ML BTL 70 ML IJ (15:31)
== END 2023-12-07 10:36 ==
LOC: DI 10:18
PROVIDERS: PCP Physician Assistant; Visit Provider Student in an Organized Health Care Education/Training Program
DX: R05.3 Chronic cough (principal); R91.8 Other nonspecific abnormal finding of lung field
CPT/HCPCS: 36415; 80053; 71046; 71260; 85025; J3490

== ENCOUNTER 2023-12-24 11:49 | Outpatient (CLI) | payer OTHER, SELFPAY ==
[2023-12-24 15:47] LABS: NT-proBNP 331 pg/mL (<300)
[2023-12-27 15:46] LABS: Lamotrigine 5.2 mcg/mL (3.0-15.0)
== END 2023-12-24 11:50 | disposition home or self-care (01) ==
LOC: LBO 11:49
PROVIDERS: PCP Physician Assistant; Visit Provider Student in an Organized Health Care Education/Training Program
DX: R05.3 Chronic cough (principal)
CPT/HCPCS: 36415; 80175; 83880

== ENCOUNTER 2023-12-31 08:12 | Outpatient (CLI) | payer OTHER, SELFPAY ==
[2023-12-31 08:17] LABS: ESR 6 mm/hr (0-30)
[2023-12-31 18:34] LABS: IgE 7 IU/mL (<158)
[2024-01-03 14:32] LABS: ANA Interpretation Positive (Negative); ANA Titer Pattern 1:80 Speckled
[2024-01-04 11:36] LABS: Myeloperoxidase Ab IgG <0.2 U (>=0.4); Proteinase 3 Ab (PR3) <0.2 U
== END 2023-12-31 08:13 | disposition home or self-care (01) ==
LOC: LBO 08:12
PROVIDERS: PCP Physician Assistant; Visit Provider Internal Medicine
DX: R21 Rash and other nonspecific skin eruption (principal); Z87.891 Personal history of nicotine dependence; J47.9 Bronchiectasis, uncomplicated
CPT/HCPCS: 36415; 85652; 82785; 83516; 86038

== ENCOUNTER 2024-01-18 03:21 | Outpatient (CLI) | payer OTHER, SELFPAY ==
[2024-01-18] MEDS: Albuterol HFA 18 GM 200 PUFF INH IH (12:10)
[2024-01-18] MEDS: Methacholine 100 MG VIAL IH (12:10)
[2024-01-18] MEDS: Inhaler, Assist Device 1 EACH MC (12:10)
--- NOTE | 2024-01-20 20:39 | W.PFT ---
Date of service: 01/18/24 Time of Service: 10:06 Pulmonary Function Test Result Indications: Cough Interpretation Spirometry: There is moderate airflow limitation at baseline. The FEV1 decreased by 24% with administration of 1mg/mL metehacholine. Lung Volumes: There is air trapping Diffusion Capacity: Normal diffusion Airway Pressure: Increased airways resistance Impression Moderate airflow limitation at baseline with a positive methacholine challenge. These findings are consistent with asthma. Clinical Correlation therefore is recommended.
== END 2024-01-18 03:22 | disposition home or self-care (01) ==
LOC: RT 03:22
PROVIDERS: PCP Physician Assistant; Visit Provider Student in an Organized Health Care Education/Training Program
DX: J45.909 Unspecified asthma, uncomplicated (principal)
CPT/HCPCS: 94060; 94070; 94726; 94729; 94010; J7674

== ENCOUNTER 2024-01-19 12:31 | Outpatient (REF) | payer OTHER, SELFPAY ==
--- NOTE | 2024-01-19 14:55 | SKI_PTH ---
PATIENT: Stephanie Shannon LOC: [facility] U#:[id number] AGE/SX: 63/F ROOM: RE01/19/[address]: Justin Medina : 1960 BED: DIS: 01/19/2024 SPEC #: [id number] RECD: 01/20/24 12:50 STATUS: AKBAR REGurmeet #: [id number] NEGRO: 01/19/24 14:[address]: Justin Medina DEPT: Surgical Specimen RECD BY: Anna Andino Tissues: 1 - SKIN BIOPSY(SHAVE/PUNCH) Procedures: SKIN LEVEL 4 Comments: [id number]
== END 2024-01-19 12:32 | disposition home or self-care (01) ==
LOC: LBN 12:31
PROVIDERS: PCP Physician Assistant; Visit Provider Physician Assistant
DX: L57.0 Actinic keratosis (principal); D04.72 Carcinoma in situ of skin of left lower limb, including hip
CPT/HCPCS: 88305

== ENCOUNTER 2024-02-02 02:24 | Outpatient (CLI) | payer OTHER, SELFPAY ==
--- NOTE | 2024-02-02 11:55 | DI.RAD_ITS ---
Exam(s) XR CERVICAL SPINE COMP 4-5V EXAM: XR CERVICAL SPINE COMP 4-5V CLINICAL HISTORY: NECK PAIN, M54.2,STIFFNESS. TECHNIQUE: 2D digital imaging was performed. COMPARISON: No exams were available for comparison FINDINGS: Seven views No evidence of fracture, listhesis, nor offset of the spinal laminar line. There is multilevel moder ate disc space narrowing at each level. On the oblique views there no prominent Luschka joint osteop hytes. Small right C7 cervical rib is noted. There are only mild degenerative changes in the facet joints. IMPRESSION: Multilevel moderate disc space narrowing. Small right C7 cervical rib noted. DATA REPOSITORY: RADIATION DOSE DELIVERED:
--- NOTE | 2024-02-02 11:55 | DI.RAD_ITS ---
Exam(s) XR SHOULDER LT COMPLETE 2+V EXAM: XR SHOULDER LT COMPLETE 2+V CLINICAL HISTORY: CHRONIC STIFFNESS, LT SHOULDER PAIN. TECHNIQUE: 2D digital imaging was performed. COMPARISON: No exams were available for comparison FINDINGS: Five views No evidence of fracture or dislocation. There is some mild calcification noted in the subacromial sp gasper. Subacromial space is mildly diminished. There moderate-advanced degenerative changes in the AC joint. There also significant degenerative changes in the glenohumeral joint. There is mild joint space narrowing. Is also a moderate size osteophyte on the inferior articular surface of the humeral head evident. No significant osseous lesions. Small bone island noted in the humeral head as well as degenerative subarticular cysts noted in the greater tuberosity region of the lateral humeral head . IMPRESSION: Degenerative changes in the glenohumeral joint as described above. DATA REPOSITORY: RADIATION DOSE DELIVERED:
--- NOTE | 2024-02-02 11:55 | DI.RAD_ITS ---
Exam(s) XR SHOULDER RT COMPLETE 2+V EXAM: XR SHOULDER RT COMPLETE 2+V CLINICAL HISTORY: PAIN RT SHOULDER, M25.511,CHRONIC STIFFNESS. TECHNIQUE: 2D digital imaging was performed. COMPARISON: CR XR SHOULDER LT COMPLETE 2+V from 02/02/2024 FINDINGS: Five views. No evidence of fracture or dislocation or abnormal soft tissue calcifications in the subacromial spac e and no significant narrowing of the subacromial space although there is some moderate degenerative change in the AC joint noted. There is some degenerative change in the glenohumeral joint noted. There is a small osteophyte on th e inferior articular surface of the humeral head. The amount of degenerative change in the right nehal ulder glenohumeral joint appears less than is evident on the opposite-left side. There are no degene rative subarticular cysts in the osseous glenoid. IMPRESSION: Some degenerative change in the glenohumeral joint but less than is evident in the opposite-left janell ohumeral joint. Incidentally noted is significant infiltrate in the ipsilateral right lung. This is recently documen harjit on separate recent chest imaging studies. DATA REPOSITORY: RADIATION DOSE DELIVERED:
== END 2024-02-02 02:44 ==
LOC: DI 02:24
PROVIDERS: PCP Physician Assistant; Visit Provider Physician Assistant
DX: M19.011 Primary osteoarthritis, right shoulder (principal); M19.012 Primary osteoarthritis, left shoulder; M50.323 Other cervical disc degeneration at C6-C7 level
CPT/HCPCS: 72050; 73030

== ENCOUNTER 2024-02-02 11:03 | Outpatient (REF) | payer OTHER, SELFPAY ==
--- NOTE | 2024-02-02 10:55 | SKI_PTH ---
PATIENT: Stephanie Shannon LOC: [facility] U#:[id number] AGE/SX: 63/F ROOM: RE02/02/[address]: Clarke Moore : 1960 BED: DIS: 02/02/2024 SPEC #: [id number] RECD: 02/02/24 13:30 STATUS: AKBAR REQ #: [id number] NEGRO: 02/02/24 10:[address]: Clarke Moore DEPT: Surgical Specimen RECD BY: Anna Andino ENTERED: 02/02/24 13:30 SP TYPE: SKI OTHR DR: Justin Medina Tissues: 1 - SKIN BIOPSY(SHAVE/PUNCH) Procedures: SKIN LEVEL 4 Comments: [id number]
== END 2024-02-02 11:04 | disposition home or self-care (01) ==
LOC: LBN 11:03
PROVIDERS: PCP Physician Assistant; Visit Provider Student in an Organized Health Care Education/Training Program
DX: C44.721 Squamous cell carcinoma of skin of unspecified lower limb, including hip (principal)
CPT/HCPCS: 88305

== ENCOUNTER 2024-02-24 01:11 | Outpatient (CLI) | payer OTHER, SELFPAY ==
--- NOTE | 2024-02-24 08:26 | DI.CT_ITS ---
Exam(s) CT CHEST W EXAM: CT CHEST W CLINICAL HISTORY: f/u RUL infiltrate,abnl ct of lung,persist cough,r05.3,r91.8 TECHNIQUE: Imaging Protocol: Axial computed tomography images with coronal and sagittal reformatted images were created and reviewed. Computer aided detection (CAD) was utilized. CONTRAST MATERIAL: Intravenous: Omnipaque 350 Contrast volume:70 ml. COMPARISON: CR XR CHEST 2V PA LATERAL from 12/07/[address] CHEST W from 12/07/[address] CHEST W from 12/24/2023 FINDINGS: Pulmonary parenchyma: Significant interval improvement previously noted right upper lobe infiltrate. Significant residual scarring present. Persistent atelectasis of the right middle lobe. No dominan t measurable mass. Tracheobronchial tree: No bronchiectasis or mucous plugging. No endobronchial mass. Mediastinum and Jeannette: Decreased size of mediastinal lymph nodes. Pleura: No effusion. No pneumothorax. Heart: The heart is not dilated. No coronary artery calcifications are seen. Aorta: Thoracic aorta non-dilated. Mild atherosclerotic changes. Pulmonary arteries: No gross evidence of emboli. Upper abdomen: No acute findings. Bones: Milddegenerative changes in the spine. Soft tissues: Unremarkable. IMPRESSION: Significant interval clearing fluid signal of the right upper lobe infiltrate. Persistent atelectasi s of the right middle lobe. No visible mass. RADIATION DOSE DELIVERED: 108.83mGy.cm Total DLP DATA REPOSITORY: All CT scans at this facility are submitted to the National Radiology Data Registry (NRDR) Dose Index Registry (DIR) with the [employer] (ACR). RADIATION OPTIMIZATION: All CT scans at this facility use at least one of these dose optimization te chniques: automated exposure control; mA and/or kV adjustment per patient size (includes targeted exa ms where dose is matched to clinical indication); or iterative reconstruction.
[2024-02-24 10:53] LABS: CREATININE 1.2 mg/dL (0.55-1.02); Estimated GFR 51.18 (mL/min/1.73m2)
[2024-02-24] MEDS: Omnipaque 350 MG/ML 500 ML BTL-Imaging package 70 ML IJ (11:29)
[2024-02-24] MEDS: Normal Saline - Diluent 50 ML VIAL IJ (11:42)
== END 2024-02-24 01:31 ==
LOC: DI 01:11
PROVIDERS: PCP Physician Assistant; Visit Provider Internal Medicine
DX: R91.8 Other nonspecific abnormal finding of lung field (principal)
CPT/HCPCS: 71260; 82565

== ENCOUNTER 2024-02-24 01:11 | Outpatient (CLI) | payer OTHER, SELFPAY ==
--- NOTE | 2024-02-24 11:01 | DI.RAD_ITS ---
Exam(s) XR FOOT RT COMPLETE EXAM: XR FOOT RT COMPLETE CLINICAL HISTORY: Right foot pain,m79.671. TECHNIQUE: 2D digital imaging was performed of the right foot. Three images were obtained. AP, obl ique and lateral views were obtained. COMPARISON: CR XR FOOT RT COMPLETE from 01/09/2022 FINDINGS: BONES: No acute fracture is present. No bony destructive lesion is seen. JOINTS: No dislocation present. There is a hallux valgus deformity. There is again seen fusion of th e PIP joints of the 2nd and 3rd toes. There is narrowing at the 1st MTP joint. SOFT TISSUE: Normal. IMPRESSION: There are mild degenerative changes seen at the 1st MTP joint and hallux valgus deformity. DATA REPOSITORY: RADIATION DOSE DELIVERED:
== END 2024-02-24 01:31 ==
LOC: DI 01:11
PROVIDERS: PCP Physician Assistant; Visit Provider Podiatrist
DX: M19.071 Primary osteoarthritis, right ankle and foot (principal); M20.11 Hallux valgus (acquired), right foot
CPT/HCPCS: 73630

== ENCOUNTER 2024-04-21 15:27 | Outpatient (REF) | payer OTHER, SELFPAY ==
--- NOTE | 2024-04-21 10:00 | SKI_PTH ---
PATIENT: Stephanie Shannon LOC: [facility] U#:[id number] AGE/SX: 64/F ROOM: RE04/21/[address]: Justin Medina : 1960 BED: DIS: 04/21/2024 SPEC #: [id number] RECD: 04/21/24 15:51 STATUS: AKBAR REQ #: [id number] NEGRO: 04/21/24 10:[address]: Justin Medina DEPT: Surgical Specimen RECD BY: Anna Andino Tissues: 1 - SKIN BIOPSY(SHAVE/PUNCH) Procedures: SKIN LEVEL 4 Comments: [id number]
== END 2024-04-21 15:28 | disposition home or self-care (01) ==
LOC: NCHCN 15:27
PROVIDERS: PCP Physician Assistant; Visit Provider Physician Assistant
DX: C44.729 Squamous cell carcinoma of skin of left lower limb, including hip (principal)
CPT/HCPCS: 88305

== ENCOUNTER 2024-06-05 01:32 | Outpatient (CLI) | payer OTHER, SELFPAY ==
--- NOTE | 2024-06-05 09:34 | DI.RAD_ITS ---
Exam(s) XR HIP RT COMPLETE AP PELVIS EXAM: XR HIP RT COMPLETE AP PELVIS CLINICAL HISTORY: RT HIP PAIN,M25.551. TECHNIQUE: 2D digital imaging was performed. Two views COMPARISON: CR SACRUM COCCYX from 06/26/2011 FINDINGS: BONES: No acute fracture is present. No bony destructive lesion is seen. Degenerative subchondral c ysts noted in the superior left acetabulum. JOINTS: No dislocation present. moderate bilateral hip joint space narrowing and periarticular spu rring. The SI joints are unremarkable. SOFT TISSUE: Normal. IMPRESSION: Moderate degenerative changes of both hips DATA REPOSITORY: RADIATION DOSE DELIVERED: Show
== END 2024-06-05 01:52 ==
LOC: DI 01:32
PROVIDERS: PCP Physician Assistant; Visit Provider Physician Assistant
DX: M16.0 Bilateral primary osteoarthritis of hip (principal)
CPT/HCPCS: 73502

== ENCOUNTER 2024-06-07 11:32 | Outpatient (REF) | payer OTHER, SELFPAY ==
[2024-06-07 10:53] LABS: Abs Immature Grans 0.02 10^3/uL (0.0-0.06); Absolute Basophil Count 0.03 10^3/uL (0.0-0.2); Absolute Eosinophil Count 0.18 10^3/uL (0.0-0.7); Absolute Lymphocyte Count 1.65 10^3/uL (1.2-3.4); Absolute Monocyte Count 0.59 10^3/uL (0.1-0.8); Absolute Neutrophil Count 3.21 10^3/uL (1.2-6.7); Basophils % 0.5 %; Eosinophils % 3.2 %; HCT 43.4 % (36.0-46.0); HGB 14.1 g/dL (11.2-15.7); Immature Grans % 0.4 %; MCH 31.7 pg (27.0-33.0); MCHC 32.5 % (32.0-36.0); MCV 98 fL (80-95); MPV 10.3 fL (8.0-11.0); Monocytes % 10.4 %; Neutrophils % 56.5 %; Platelet Count 229 10^3/uL (130-400); RBC 4.45 10^6/uL (3.93-5.22); RDW 12.8 % (11.7-14.6); WBC 5.68 10^3/uL (4.4-10.8)
[2024-06-09 11:11] LABS: IgE 8 IU/mL (<158)
== END 2024-06-07 11:33 | disposition home or self-care (01) ==
LOC: LBN 11:32
PROVIDERS: PCP Physician Assistant; Visit Provider Physician Assistant Surgical
DX: J45.909 Unspecified asthma, uncomplicated (principal); R91.8 Other nonspecific abnormal finding of lung field
CPT/HCPCS: 82785; 85025

== ENCOUNTER 2024-08-18 09:12 | Outpatient (CLI) | payer OTHER, SELFPAY ==
--- NOTE | 2024-08-18 08:39 | DI.RAD_ITS ---
Exam(s) XR KNEE RT 4V AP,LAT,LARISSA,PAT EXAM: XR KNEE RT 4V AP,LAT,LARISSA,PAT CLINICAL HISTORY: right TKA. TECHNIQUE: 2D digital imaging was performed. COMPARISON: CR XR KNEE RT 3V AP,LAT,LARISSA from 10/03/2021 CR XR KNEE RT 1V from 10/31/2021 FINDINGS: Four views There is continued satisfactory position alignment of the components of the prosthesis. No fractures nor evidence of loosening. No evidence of osteomyelitis IMPRESSION: Stable satisfactory appearance DATA REPOSITORY: RADIATION DOSE DELIVERED:
== END 2024-08-18 09:13 | disposition home or self-care (01) ==
LOC: DIORS 09:12
PROVIDERS: PCP Physician Assistant; Visit Provider Physician Assistant
DX: Z96.651 Presence of right artificial knee joint (principal); M19.012 Primary osteoarthritis, left shoulder; M16.11 Unilateral primary osteoarthritis, right hip
CPT/HCPCS: 73564

== ENCOUNTER 2024-09-25 13:46 | Outpatient (REF) | payer OTHER, SELFPAY ==
[2024-09-25 16:04] LABS: Abs Immature Grans 0.25 10^3/uL (0.0-0.06); Absolute Eosinophil Count 0.12 10^3/uL (0.0-0.7); Absolute Monocyte Count 1.44 10^3/uL (0.1-0.8); Basophils % 0.2 %; Eosinophils % 0.7 %; HGB 13.6 g/dL (11.2-15.7); Immature Grans % 1.5 %; Lymphocytes % 7.4 %; MCH 32.2 pg (27.0-33.0); MCV 95 fL (80-95); MPV 10.1 fL (8.0-11.0); Monocytes % 8.6 %; Neutrophils % 81.6 %; Platelet Count 232 10^3/uL (130-400); RBC 4.23 10^6/uL (3.93-5.22); RDW-SD 45.3 fL; WBC 16.78 10^3/uL (4.4-10.8)
[2024-09-25 16:07] LABS: Absolute Basophil Count 0.03 10^3/uL (0.0-0.2); Absolute Lymphocyte Count 1.24 10^3/uL (1.2-3.4); Absolute Neutrophil Count 13.69 10^3/uL (1.2-6.7)
[2024-09-25 16:26] LABS: Anion Gap 11.5 mmol/L (3-11); BUN 20 mg/dL (7-18); CO2 23.5 mmol/L (21.0-32.0); CREATININE 0.9 mg/dL (0.55-1.02); Chloride 103 mmol/L (98-107); Estimated GFR 71.83 (mL/min/1.73m2); Glucose 148 mg/dL (74-106); Potassium 4.5 mmol/L (3.5-5.1); Sodium 138 mmol/L (136-145); TSH 1.54 uIU/mL (0.36-3.74)
== END 2024-09-25 13:47 | disposition home or self-care (01) ==
LOC: NCHCN 13:46
PROVIDERS: PCP Physician Assistant; Visit Provider Physician Assistant
DX: J45.909 Unspecified asthma, uncomplicated (principal); E03.9 Hypothyroidism, unspecified
CPT/HCPCS: 80048; 84443; 85025

== ENCOUNTER 2024-10-09 01:26 | Outpatient (CLI) | payer OTHER, SELFPAY ==
--- NOTE | 2024-10-09 08:15 | DI.MRI_ITS ---
Exam(s) MR UPPER JOINT LT WO EXAM: MR UPPER JOINT LT WO CLINICAL HISTORY: SURGICAL PLANNING, L SHOULDER PAIN,ARTHRITIS LT GLENOHUMERAL JOINT. TECHNIQUE: Multiplanar multisequence MRI was performed. COMPARISON: 02 February 2024 plain films. FINDINGS: BONES: There is no fracture or contusion pattern. Degenerative subchondral cysts in the humeral head. JOINTS:The acromioclavicular joint is shows moderate inferior spurring. The glenohumeral joint is normal. TENDONS: Supraspinatus: Some thickening and high signal consistent with tendinosis. Small partial tear. Infraspinatus: Unremarkable thickening and intermediate signal consistent with tendinosis. Subscapularis: Unremarkable. Teres Minor: Unremarkable. Biceps and [place]: Unremarkable. MUSCLES: Unremarkable. GLENOID LABRUM: Degenerative changes. SOFT TISSUES: Unremarkable. BURSAE: Subacromial and subdeltoid bursae shows a small amount of fluid.. IMPRESSION: Supraspinatus tendinosis with small partial tear. Infraspinatus tendinosis without focal tear. Degenerative changes of the AC joint and glenohumeral joint. DATA REPOSITORY:
--- NOTE | 2024-10-09 08:20 | DI.CT_ITS ---
Exam(s) CT UPPER EXTREMITY LT WO EXAM: CT UPPER EXTREMITY LT WO CLINICAL HISTORY: SURGICAL PLANNING,ARTHRITIS LT GLENOHUMERAL JOINT,M19.012, TECHNIQUE: Imaging Protocol: Axial computed tomography images with coronal and sagittal reformatted images were created and reviewed. CONTRAST MATERIAL: Noncontrast COMPARISON: CR XR SHOULDER RT COMPLETE 2+V from 02/02/[address] CHEST WO from 07/10/2024 FINDINGS: Bones: There is no evidence of fracture or dislocation. Bony alignment is satisfactory. No cellulitic or osteomyelitic changes are identified. There are several subchondral cysts in the humeral head. There is spurring at the inferior humeral head. There is narrowing the glenohumeral joint and mild spurring at the glenoid. Spurring is also present at the AC joint. No lytic or sclerotic lesions are identified. Soft Tissues: Right middle lobe and bronchiectasis partially included in the field of view. IMPRESSION: Moderate degenerative changes of the AC joint and glenohumeral joint.. RADIATION DOSE DELIVERED: 141.78mGy.cm Total DLP DATA REPOSITORY: All CT scans at this facility are submitted to the National Radiology Data Registry (NRDR) Dose Index Registry (DIR) with the [employer] (A[employer]). RADIATION OPTIMIZATION: All CT scans at this facility use at least one of these dose optimization techniques: automated exposure control; mA and/or kV adjustment per patient size (includes targeted exams where dose is matched to clinical indication); or iterative reconstruction.
== END 2024-10-09 01:46 ==
PROVIDERS: PCP Physician Assistant; Visit Provider Student in an Organized Health Care Education/Training Program
DX: M19.012 Primary osteoarthritis, left shoulder (principal)
CPT/HCPCS: 73200; 73221

== ENCOUNTER 2024-12-26 10:59 | Day surgery (SDC) | payer OTHER, SELFPAY ==
[2024-12-26] VITALS (12 sets, daily range): BP systolic 94–119; BP diastolic 43–73; PULSE 60–70; RESP 12–25; TEMP 36.4–36.7; O2SAT 96–100; BMI 22.4
--- NOTE | 2024-12-26 10:43 | W.ANESPRE ---
General Info Date of Service Date Performed: 12/26/24 Height: 5 ft 3 in Weight: 57.606 kg Body Mass Index (BMI): 22.4 Surgical Procedure: Operation Date: 12/26/24 13:40 Proposed Procedure Side Surgeon p Kenneth Max MD Meds Allergies and Home Medications Allergies Allergy/AdvReac Type Severity Reaction Status Date / Time NSAIDS (Non-Steroidal AdvReac Severe GI Bleeding Verified 12/26/24 11:12 Anti-Inflamma topiramate (From Topamax) AdvReac Severe confusion Verified 12/26/24 11:09 droperidol AdvReac Mild can't hold Verified 12/26/24 11:09 still risperidone (From Risperdal) AdvReac Mild milk Verified 12/26/24 11:09 comes in Home Medication ?Medication ?Instructions ?Recorded estradiol acetate 0.1 mg/24 hr 1 ea vaginal DAILY ##1 06/13/14 vaginal ring (Femring) albuterol sulfate 90 mcg/actuation 2 puff inhalation Q4H PRN PRN 05/19/16 aerosol inhaler (ProAir HFA) acetaminophen 500 mg tablet (Mapap 1,000 mg (2 x 500 mg) PO TID #180 05/28/16 Extra Strength) tabs lamotrigine 25 mg tablet (Lamictal) 50 mg PO DAILY 10/07/21 montelukast 10 mg tablet 10 mg PO QHS 10/07/21 cholecalciferol (vitamin D3) 75 2,400 unit PO DAILY 06/25/22 mcg (3,000 unit) tablet modafinil 100 mg tablet 100 mg PO DAILY 06/25/22 pantoprazole 40 mg tablet,delayed 40 mg PO DAILY 12/17/23 release propranolol 80 mg capsule,24 80 mg PO DAILY #90 caps 12/28/23 hr,extended release levothyroxine 125 mcg capsule 137 mcg PO DAILY 05/01/24 loratadine-pseudoephedrine 1 tab PO DIRECTED PRN 05/01/24 multivitamin 1 tab PO DAILY PRN 05/01/24 ipratropium 0.5 mg-albuterol 3 mg 3 ml inhalation QID PRN wheezing 06/07/24 (2.5 mg base)/3 mL nebulization #180 mL soln cariprazine 1.5 mg capsule 3 mg PO DAILY 07/12/24 (Vraylar) primidone 50 mg tablet 100 mg (2 x 50 mg) PO QHS #180 tabs 07/12/24 lamotrigine 200 mg tablet 100 mg PO DAILY 07/31/24 (Lamictal) sertraline 25 mg tablet (Zoloft) 100 mg PO DAILY 07/31/24 magnesium oxide 500 mg capsule 500 mg PO DAILY 08/18/24 psyllium husk 3.4 gram/5.4 gram 1 tsp PO DAILY 09/13/24 oral powder (Metamucil) mepolizumab 100 mg/mL subcutaneous 100 mg subcut Q4W #1 mL 10/04/24 auto-injector (Nucala) polyethylene glycol 3350 17 gram 17 g PO DAILY 10/11/24 oral powder packet (Miralax) celecoxib 200 mg capsule 200 mg PO DAILY 10/12/24 azelastine 137 mcg (0.1 %) nasal 2 spray intranasal BID 11/06/24 spray budesonide 160 mcg-glycopyr 9 2 inh inhalation BID #10.7 grams 12/05/24 mcg-formot 4.8 mcg/actuation HFA inhaler (Breztri Aerosphere) linaclotide 145 mcg capsule 145 mcg PO DAILY 12/25/24 (Linzess) Current Visit Medications: Current Medications Generic Name Dose Route Start Last Admin Trade Name Freq PRN Reason Stop Dose Admin Albuterol Sulfate 2.5 mg 12/26/24 06:00 Albuterol 2.5 Mg/3 Ml Inh Soln Vial UPD 01/25/25 23:59 .PREMED [facility] Ringer's Solution 1,000 mls @ 30 mls/hr 12/26/24 06:00 IV 12/26/24 23:59 INFUSION [facility] IV Miscellaneous Supplies 1 each 12/26/24 06:00 Iv Access IV 12/26/24 23:59 DIRECTED KEYSHA Lidocaine HCl 2 ml 12/26/24 06:00 Lidocaine 2% Pres-Free 2 Ml Vial IJ 12/26/24 23:59 .PREMED KEYSHA Sodium Chloride 0 ml 12/26/24 06:00 Normal Saline Flush 10 Ml Syr IV 12/26/24 23:59 PRN PRN Sodium Chloride 0 ml 12/26/24 06:00 Normal Saline 10 Ml Vial IJ 12/26/24 23:59 DIRECTED PRN Sterile Water 0 ml 12/26/24 06:00 Water,Injection,Sterile 10 Ml Vial IJ 12/26/24 23:59 DIRECTED PRN PFSH Active Problems Active Problems: Problem Status Onset Code Left rotator cuff tear Acute M75.102 Degenerative joint disease of right hip Chronic M16.11 Arthritis of left glenohumeral joint Acute M19.012 Lung collapse Acute J98.19 Ingrown toenail of right foot Acute L60.0 Bunion, right foot Acute M21.611 Squamous cell carcinoma of lower leg Acute ~01/19/[address] scan of lung Acute R91.8 Rash Acute R21 Persistent cough Acute R05.3 Tremor Acute R25.1 Neck pain Acute M54.2 Obstructed diaphragmatic hernia Acute K44.0 Parkinsonism Acute G20.C Hyperthyroidism Chronic E05.90 Onychomycosis Acute B35.1 Pain in left foot Acute M79.672 Hammertoe of left foot Acute M20.42 Sleep apnea Acute Fibromyalgia Acute Asthma Chronic J45.909 Allergic rhinitis Acute J30.9 Vitamin D deficiency Acute E55.9 Hypothyroidism Chronic E03.9 Bipolar affective disorder, currently active Acute F31.9 Osteoarthritis of left knee Acute M17.12 Patellofemoral disorder of right knee Acute M22.2X1 Iliotibial band syndrome, right leg Acute M76.31 Vaginal atrophy Acute 06/12/14 N95.2 Primary osteoarthritis of right knee Acute 03/12/16 M17.11 Postnasal drip Acute 11/12/14 R09.82 Female perineal laxity Acute 09/12/15 N81.89 Essential tremor Acute 04/27/17 G25.0 Other disorders of Eustachian tube Acute 04/17/13 H69.80 Medical History Medical History Chronic constipation Lactose intolerance in adult Hiatal hernia Verruca plana Dysphagia Knee joint pain History of neck pain Atrophic vaginitis Breast cyst Mammogram abnormal Vulvar fissure (05/31/15) Serous otitis media (04/17/13) Otitis externa (06/18/14) Menopausal symptoms (06/12/14) increased in 2014 since stopping Femring. S/P Hysterectomy with ovarian conservation in past. ? coincidence vs effect of FemRing? Lichen sclerosus (06/12/14) dx in past. recently experiencing increased discomfort with intercourse Hypertrophy of labia minora (11/12/14) Dyspareunia (06/25/14) Allergic rhinitis due to other allergen (02/12/14) Allergy Tested at [facility]-Dr. Chaudhari 05/14/14 Vaginal atrophy Femring with good results. Surgical History Surgical History History of appendectomy 12/12/1995 History of colonoscopy 11/11/1999 History of toe surgery ~s, surgical correction of hammertoes on toes #2-#5 bi-laterally. History of total right knee replacement Status post osteotomy mandibular osteotomy--1990 Hx of exploratory laparotomy Abdominal hysterectomy with distal ileum and transverse colon resection d/t possible volvulus-- 1995 Tobacco Smoking/Tobacco Use Status: Never Passive smoking exposure: Yes Alcohol Alcohol Intake: never Substance Use Substance use: Never Substance use type: does not use Imaging and Studies Imaging and Studies Study information below may be from another EMR and interpreted by another provider. Please see original notes in EMR for more complete details. CT Summary: 12-13-24 FINDINGS: Tracheobronchial tree: Patent where visualized. There is bronchiectasis seen in the right middle lobe. Pulmonary parenchyma: There is atelectasis in the left lower lobe. The left lung is otherwise clear. There is persistent collapse of the right middle lobe with resultant air bronchograms. Linear opacities are again seen in the right upper lobe which appears stable. There are no new infiltrates in the lungs. There is again seen hyperexpansion of the right lower lobe. Mediastinum and Jeannette: No dominant adenopathy or fluid collection. The esophagus is unremarkable. There is a stable rightward midline shift of the mediastinum secondary to the loss of volume of the right middle lobe. Thyroid gland: Unremarkable. Pleura: No effusion or pneumothorax. Heart: The heart is not dilated. No coronary artery calcifications are seen. No pericardial effusion. Aorta: Thoracic aorta non-dilated. Mild atherosclerotic calcification is present. Upper abdomen: Unremarkable. Lymph nodes: Within normal limits. Soft tissues: Unremarkable. Bones:Within normal limits for the patient's age. There are age-appropriate degenerative changes seen in the thoracic spine. IMPRESSION: 1. Stable appearance of the right lobe with loss of volume and bronchiectasis. 2. Atelectasis in the left lower lobe. Otherwise, stable appearance of the lungs. Pulmonary Function Summary: Date of service: 01/18/24 Time of Service: 10:06 Pulmonary Function Test Result Indications: Cough Interpretation Spirometry: There is moderate airflow limitation at baseline. The FEV1 decreased by 24% with administration of 1mg/mL metehacholine. Lung Volumes: There is air trapping Diffusion Capacity: Normal diffusion Airway Pressure: Increased airways resistance Impression Moderate airflow limitation at baseline with a positive methacholine challenge. These findings are consistent with asthma. Clinical Correlation therefore is recommended. Anesthesia Assessment and Plan Anesthesia History Personal History: No History of Anesthesia Complications, No History of General Anesthesia and PONV Family History: No Family History of Anesthesia Complications Exercise Tolerance Exercise Tolerance: Metabolic Equivalents<4 Pertinent Negatives Pertinent Negatives: No Symptoms of GERD, No Major Cardiovascular Symptoms or Complaints, No Major Pulmonary Symptoms or Complaints and No History of CVA/TIA Cardiac & Pulmonary Exam Cardiac Exam: Normal S1/S2 Heart Sounds Pulmonary Exam: Clear Bilateral Breath Sounds (diminished) and Active Cough or Cold (chronic cough and SOB) Implantable Cardiac Device Does patient have a Pacemaker or an ICD?: No Airway Exam Known Difficult Airway: No Mallampati Class: 2 Mouth Opening: Normal (> 3cm) Thyromental Distance: Greater than 3 cm Neck Range of Motion: Full ROM Neck Circumference: Normal Teeth Condition: Normal Dentition ASA Classification ASA Score: ASA 2 Emergency Case?: No NPO Status NPO Status: NPO Clears >2 hours, Solids >8 hours Anesthesia Plan Resuscitation Status: Full Code Anesthesia Technique: General Anesthesia Airway Planned: LMA Monitors Used: Standard Monitors
--- NOTE | 2024-12-26 11:26 | W.PM.OP ---
Operative Note Operative Note PRE-OP DIAGNOSIS: Bronchiectasis POST-OP DIAGNOSIS: same Bronchomalacia - bilateral PROCEDURE: Fiberoptic bronchoscopy with BAL of the right middle lobe SURGEON: Fuad Max ANESTHESIA TYPE: General LMA/ETT (Under the direction the anesthesiology team and as per anesthesia record) Refer to Anesthesia Record Procedure Description: The risks (including bleeding, respiratory failure, and pneumothorax), benefits, and alternatives of the procedure were discussed with the patient and consent was obtained.? A Time Out was held and the above information confirmed. Following the induction of general anesthesia, the patient was ventilation through an LMA. The bronchoscope was passed through the LMA. The vocal cords were visualized and lidocaine was topically placed onto the cords. The cords were normal. The scope was then passed into the trachea.?Additional lidocaine was used topically.? A full endobronchial examination was performed.? There was bilateral bronchomalacia in the segmental bronchi of the RML, RLL, KASSANDRA and LLL. There were opaque mucous plugs in the RML bronchus and LLL bronchus. 100 mL of saline was injected into the medial segment of the RML and 25 mL was aspirated. The fluid appeared cloudy/opaque. No obstructing lesions or masses were seen. The RML bronchus was patent. BAL fluid was sent for bacterial/fungal/afb cultures, cell count, and cytopathology. The Patient was taken to the Endoscopy Recovery area in satisfactory condition. Date of Procedure: 12/26/24
[2024-12-26] MEDS: Lactated Ringers 1,000 ML 30 ML IV (11:46)
[2024-12-26] MEDS: Albuterol 2.5 MG/3 ML INH SOLN VIAL UPD (12:08)
[2024-12-26] MEDS: Lidocaine 2% Pres-Free 2 ML VIAL IJ (12:08)
--- NOTE | 2024-12-26 12:39 | PAPNONF_PTH ---
PATIENT: Stephanie Shannon LOC: [facility] U#:[id number] AGE/SX: 64/F ROOM: RE12/26/[address]: Fuad Max : 1960 BED: DIS: 12/26/2024 SPEC #: [id number] RECD: 12/26/24 17:17 STATUS: AKBAR MARTINES #: [id number] NEGRO: 12/26/24 12:[address]: Fuad Max DEPT: [facility] Cytology RECD BY: Anna Andino ENTERED: 12/26/24 17:19 SP TYPE: YANG HAGEN DR: Justin Medina Tissues: 1 - BODY FLUID CYTO(NOT S/U/N/EM)[facility] Procedures: BODY FLUID CYTO(NOT SPU/UR/NIP/ENDOM)[facility] Comments: [id number] (TV = 25 cm, SENT FRESH) (REFRIGERATED)
--- NOTE | 2024-12-26 12:51 | W.PREOPHP ---
Assessment and Plan Assessment and plan (1) Bronchiectasis: Status: Acute Assessment and plan: Proceed with bronchoscopy with BAL of the RML History of Present Illness History of Present Illness Chief Complaint: Bronchiectasis Narrative: See pulmonary clinic note for full details. 64 yo who presents for bronchoscopy to evaluate bronchiectasis. No clinical changes since her last clinic visit on 11/06/24. Has minimal cough. No significant dyspnea. No fevers. No chest pain. Review of Systems Narrative: 6 pt ROS negative except as in HPI PFSH All Active Problems (Updated 12/26/24 @ 12:54 by Fuad Max MD) Bronchiectasis (Acute) Left rotator cuff tear (Acute) Degenerative joint disease of right hip (Chronic) Arthritis of left glenohumeral joint (Acute) DEPO MEDROL 08/18/24 Lung collapse (Acute) RML Ingrown toenail of right foot (Acute) Bunion, right foot (Acute) Squamous cell carcinoma of lower leg (Acute ~01/19/24) left strickland positive margins at base on recent shave bx Abnormal CT scan of lung (Acute) Rash (Acute) Persistent cough (Acute) Tremor (Acute) chronic Neck pain (Acute) Obstructed diaphragmatic hernia (Acute) Parkinsonism (Acute) Hyperthyroidism (Chronic) Onychomycosis (Acute) Pain in left foot (Acute) Hammertoe of left foot (Acute) Sleep apnea (Acute) Fibromyalgia (Acute) Asthma (Chronic) Allergic rhinitis (Acute) Vitamin D deficiency (Acute) Hypothyroidism (Chronic) Bipolar affective disorder, currently active (Acute) Osteoarthritis of left knee (Acute) Patellofemoral disorder of right knee (Acute) Iliotibial band syndrome, right leg (Acute) DEPO MEDROL 08/21/24 Vaginal atrophy (Acute 06/12/14) Pt used FemRing in past, changed to Vagifem and now has resumed FemRing use again. Primary osteoarthritis of right knee (Acute 03/12/16) Postnasal drip (Acute 11/12/14) Female perineal laxity (Acute 09/12/15) Essential tremor (Acute 04/27/17) Other disorders of Eustachian tube (Acute 04/17/13) Medical History Chronic constipation Lactose intolerance in adult Hiatal hernia Verruca plana Dysphagia Knee joint pain History of neck pain Atrophic vaginitis Breast cyst Mammogram abnormal Vulvar fissure (05/31/15) Serous otitis media (04/17/13) Otitis externa (06/18/14) Menopausal symptoms (06/12/14) increased in 2015 since stopping Femring. S/P Hysterectomy with ovarian conservation in past. ? coincidence vs effect of FemRing? Lichen sclerosus (06/12/14) dx in past. recently experiencing increased discomfort with intercourse Hypertrophy of labia minora (11/12/14) Dyspareunia (06/25/14) Allergic rhinitis due to other allergen (02/12/14) Allergy Tested at [facility]-Dr. Chaudhari 05/14/14 Vaginal atrophy Femring with good results. Surgical History History of appendectomy 12/12/1995 History of colonoscopy 11/11/1999 History of toe surgery ~s, surgical correction of hammertoes on toes #2-#5 bi-laterally. History of total right knee replacement Status post osteotomy mandibular osteotomy--1990 Hx of exploratory laparotomy Abdominal hysterectomy with distal ileum and transverse colon resection d/t possible volvulus-- 1995 Family History Mother Lupus Lung cancer Father COPD (chronic obstructive pulmonary disease) Social History Smoking/Tobacco Use Status: Never Smoking risk assessment performed?: Yes Alcohol Intake: never Drug use: Never Substance use type: does not use Housing: house Do you feel safe at home: Yes Do you feel safe in your relationship?: Yes Meds Allergies and Home Medications Allergies Allergy/AdvReac Type Severity Reaction Status Date / Time NSAIDS (Non-Steroidal AdvReac Severe GI Bleeding Verified 12/26/24 11:12 Anti-Inflamma topiramate (From Topamax) AdvReac Severe confusion Verified 12/26/24 11:09 droperidol AdvReac Mild can't hold Verified 12/26/24 11:09 still risperidone (From Risperdal) AdvReac Mild milk Verified 12/26/24 11:09 comes in Home Medications ?Medication ?Instructions ?Recorded ?Confirmed ?Type estradiol acetate 0.1 mg/24 hr 1 ea vaginal DAILY ##1 06/13/14 12/26/24 History vaginal ring (Femring) albuterol sulfate 90 mcg/actuation 2 puff inhalation Q4H PRN PRN 05/19/16 12/26/24 History aerosol inhaler (ProAir HFA) acetaminophen 500 mg tablet (Mapap 1,000 mg (2 x 500 mg) PO TID #180 05/28/16 12/26/24 Rx Extra Strength) tabs lamotrigine 25 mg tablet (Lamictal) 50 mg PO DAILY 10/07/21 12/26/24 History montelukast 10 mg tablet 10 mg PO QHS 10/07/21 12/26/24 History cholecalciferol (vitamin D3) 75 2,400 unit PO DAILY 06/25/22 12/26/24 History mcg (3,000 unit) tablet modafinil 100 mg tablet 100 mg PO DAILY 06/25/22 12/26/24 History pantoprazole 40 mg tablet,delayed 40 mg PO DAILY 12/17/23 12/26/24 History release propranolol 80 mg capsule,24 80 mg PO DAILY #90 caps 12/28/23 12/26/24 Rx hr,extended release levothyroxine 125 mcg capsule 137 mcg PO DAILY 05/01/24 12/26/24 History loratadine-pseudoephedrine 1 tab PO DIRECTED PRN 05/01/24 12/26/24 History multivitamin 1 tab PO DAILY PRN 05/01/24 12/26/24 History ipratropium 0.5 mg-albuterol 3 mg 3 ml inhalation QID PRN wheezing 06/07/24 12/26/24 Rx (2.5 mg base)/3 mL nebulization #180 mL soln cariprazine 1.5 mg capsule 3 mg PO DAILY 07/12/24 12/26/24 History (Vraylar) primidone 50 mg tablet 100 mg (2 x 50 mg) PO QHS #180 tabs 07/12/24 12/26/24 Rx lamotrigine 200 mg tablet 100 mg PO DAILY 07/31/24 12/26/24 History (Lamictal) sertraline 25 mg tablet (Zoloft) 100 mg PO DAILY 07/31/24 12/26/24 History magnesium oxide 500 mg capsule 500 mg PO DAILY 08/18/24 12/26/24 History psyllium husk 3.4 gram/5.4 gram 1 tsp PO DAILY 09/13/24 12/26/24 History oral powder (Metamucil) mepolizumab 100 mg/mL subcutaneous 100 mg subcut Q4W #1 mL 10/04/24 12/26/24 Rx auto-injector (Nucala) polyethylene glycol 3350 17 gram 17 g PO DAILY 10/11/24 12/26/24 History oral powder packet (Miralax) celecoxib 200 mg capsule 200 mg PO DAILY 10/12/24 12/26/24 History azelastine 137 mcg (0.1 %) nasal 2 spray intranasal BID 11/06/24 12/26/24 History spray budesonide 160 mcg-glycopyr 9 2 inh inhalation BID #10.7 grams 12/05/24 12/26/24 Rx mcg-formot 4.8 mcg/actuation HFA inhaler (Breztri Aerosphere) linaclotide 145 mcg capsule 145 mcg PO DAILY 12/25/24 12/26/24 History (Linzess) Exam Narrative Exam Narrative: General: alert, no acute distress Head: normocephalic ENT: no stridor, trachea midline CV: normal rate, regular rhythm Respiratory: no wheezing, no crackles, no rhonchi, no prolonged expiration GI: abd soft, non-tender, non-distended Skin: no rashes Extremities: no edema, no digital clubbing Psych: normal affect Results Imaging CT scan - chest: report reviewed and image reviewed Last Vital Signs Temp 36.5 C 12/26/24 11:19 Pulse 61 12/26/24 11:19 Resp 16 12/26/24 11:19 BP 119/73 12/26/24 11:19 Pulse Ox 100 12/26/24 11:19
--- NOTE | 2024-12-26 13:33 | W.ANESPOSTOP ---
Postoperative Evaluation Date, Time and Location Date Performed: 12/26/24 Time Performed: 13:33 Patient Location: Day [facility] Unit Vital Signs Most Recent Imported Vital Signs: Most Recent Vital Signs Temp Pulse Resp BP Pulse Ox 36.7 C 63 18 109/64 100 12/26/24 13:20 12/26/24 13:20 12/26/24 13:20 12/26/24 13:20 12/26/24 13:20 Pain Score Most Recent Pain Score: Most Recent Pain Score Pain Level 0 12/26/24 13:20 Assessment Mental Status: Awake (Alert & Oriented to Patient Baseline) Airway and Respiratory Function: Patent airway with normal (patient baseline) respiratory exam Cardiovascular Function: Hemodynamically Stable Hydration Status: Adequately Hydrated Nausea & Vomiting: No Nausea or Vomiting Pain: Pt. Denies Any Pain Peripheral Nerve Block: Patient did not receive a nerve block
== END 2024-12-26 14:30 | disposition home or self-care (01) ==
PROVIDERS: PCP Physician Assistant; Visit Provider Internal Medicine Pulmonary Disease
PROC: 0BJ08ZZ Inspection of Tracheobronchial Tree, Via Natural or Artificial Opening Endoscopic (ICD-10-PCS; CPT 31622; principal; 2024-12-26 13:30)
DX: J47.9 Bronchiectasis, uncomplicated (principal)
CPT/HCPCS: 31624; 87102; 87116; 87206; 88104; 94640; J1100; J2003; J2405; J2704; J7613

== ENCOUNTER 2025-01-06 22:56 | Emergency (ER) | payer OTHER, SELFPAY ==
[2025-01-06] VITALS (13 sets, daily range): BP systolic 113–153; BP diastolic 42–99; PULSE 0–150; RESP 11–19; TEMP 36.5; O2SAT 82–100
--- NOTE | 2025-01-06 22:45 | RT.EKG_ITS ---
APPROVED REPORT Exam: Resting ECG Reason for Exam: High Heart Rate Patient Location: E HR:133 bpm ECG Measurements Heart Rate 133 AXIS MS [id number] P [id number] QRSd 77 QRS 68 QT 327 T 39 QTc 486 Conclusion Junctional tachycardia...absent P waves, rapid V-rate with retrograde P wave ST depression, consider ischemia, diffuse lds...ST <-0.10mV, ant/lat/inf; likely rate related
--- NOTE | 2025-01-06 22:58 | W.ED.GENAD ---
Discharge Plan Disposition Patient Disposition: Home Condition: Good Discharge Details Clinical Impression: Junctional tachycardia Primary Care Provider: Justin Medina ED Provider: Farhan Lozada [place] Meds and New Rx's Prescriptions: Continued propranolol 80 mg capsule,extended release 24 hr 80 mg PO DAILY Qty: 90 3RF primidone 50 mg tablet 100 mg PO QHS Qty: 180 3RF Metamucil 3.4 gram/5.4 gram powder 1 tsp PO DAILY Rx Instructions: mix into at least 4 oz water or juice before administering magnesium oxide 500 mg capsule 500 mg PO DAILY lamotrigine 200 mg tablet 200 mg PO DAILY cholecalciferol (vitamin D3) 75 mcg (3,000 unit) tablet 2,400 unit PO DAILY modafinil 100 mg tablet 100 mg PO DAILY multivitamin Tablet 1 tab PO DAILY PRN levothyroxine 125 mcg capsule 137 mcg PO DAILY ipratropium-albuterol 0.5 mg-3 mg(2.5 mg base)/3 mL solution for nebulization 3 ml inhalation QID PRN (Reason: wheezing) Qty: 180 3RF sertraline [Zoloft] 25 mg tablet 100 mg PO DAILY Patient Comments: per patient azelastine 137 mcg (0.1 %) spray,non-aerosol 2 spray intranasal BID Patient Comments: USE 2 SPRAYS IN EACH NOSTRIL TWO TIMES A DAY polyethylene glycol 3350 [Miralax] 17 gram powder in packet 17 g PO DAILY celecoxib 200 mg capsule 200 mg PO DAILY Femring 1 EACH ring 1 ea VG DAILY Qty: 1 Patient Comments: use 1 ring every 3 months Rx Instructions: insert and leave in place for 3months lamotrigine [Lamictal] 25 mg tablet 50 mg PO DAILY montelukast 10 mg tablet 10 mg PO QHS pantoprazole 40 mg tablet,delayed release (DR/EC) 40 mg PO DAILY loratadine-pseudoephedrine [Claritin-D 24 Hour] 1 tab PO DIRECTED PRN Vraylar 1.5 mg capsule 3 mg PO DAILY Nucala 100 mg/mL auto-injector 100 mg subcut Q4W Qty: 1 12RF Breztri Aerosphere 160-9-4.8 mcg/actuation HFA aerosol inhaler 2 inh inhalation BID Qty: 10.7 12RF albuterol sulfate [ProAir HFA] 200 PUFF HFA aerosol inhaler 2 puff Inhalation Q4H PRN PRN acetaminophen [Mapap Extra Strength] 500 MG tablet 1,000 mg PO TID Qty: 180 3RF Linzess 145 mcg capsule 145 mcg PO DAILY Patient Comments: TAKE ONE CAPSULE BY MOUTH EVERY DAY Discharge Instructions Instructions: Supraventricular tachycardia (SVT) Additional Instructions: You were seen in the ED for a fast heart rate. Your EKG showed a junctional tachycardia which we treated with a single dose of adenosine with subsequent return to normal rhythm. Your laboratory studies are otherwise reassuring and you had no recurrence of an abnormal rhythm. If you have a recurrent episode you may try Valsalva maneuver at home as we discussed but if you have persistent rapid heart rate or any associated symptoms such as lightheadedness, shortness of breath, chest pain, neurologic change he should proceed to the ED. Please follow-up with your primary care physician for further evaluation, outpatient heart monitoring, referral to cardiology if thought to be necessary. Referrals: Justin Medina [Primary Care Provider, Medicine] HPI General Mode of arrival: ambulatory. Date/Time Provider Initiated Documentation: 01/06/25 22:57. Limitations to Documentation: no limitations. Information obtained by: patient, RN notes reviewed and old records reviewed. HPI Narrative: Patient presents to ED complaint of rapid heart rate. Patient was walking her dog and developed rapid heart rate which was not typical for her and has never happened previously. She does have dyspnea on exertion which is chronic and baseline and was unchanged tonight. Denies any type of chest pain or pressure. Denies any recent illnesses. Can feel her heart racing but otherwise feels fine with no lightheadedness, neurologic change, nausea or vomiting. Since it did not resolve she came into the ED for evaluation. Related Data Home Medications ?Medication ?Instructions ?Recorded ?Confirmed estradiol acetate 0.1 mg/24 hr 1 ea vaginal DAILY ##1 06/13/14 01/06/25 vaginal ring (Femring) albuterol sulfate 90 mcg/actuation 2 puff inhalation Q4H PRN PRN 05/19/16 01/06/25 aerosol inhaler (ProAir HFA) acetaminophen 500 mg tablet (Mapap 1,000 mg (2 x 500 mg) PO TID #180 05/28/16 01/06/25 Extra Strength) tabs lamotrigine 25 mg tablet (Lamictal) 50 mg PO DAILY 10/07/21 01/06/25 montelukast 10 mg tablet 10 mg PO QHS 10/07/21 01/06/25 cholecalciferol (vitamin D3) 75 2,400 unit PO DAILY 06/25/22 01/06/25 mcg (3,000 unit) tablet modafinil 100 mg tablet 100 mg PO DAILY 06/25/22 01/06/25 pantoprazole 40 mg tablet,delayed 40 mg PO DAILY 12/17/23 01/06/25 release propranolol 80 mg capsule,24 80 mg PO DAILY #90 caps 12/28/23 01/06/25 hr,extended release levothyroxine 125 mcg capsule 137 mcg PO DAILY 05/01/24 01/06/25 loratadine-pseudoephedrine 1 tab PO DIRECTED PRN 05/01/24 01/06/25 multivitamin 1 tab PO DAILY PRN 05/01/24 01/06/25 ipratropium 0.5 mg-albuterol 3 mg 3 ml inhalation QID PRN wheezing 06/07/24 01/06/25 (2.5 mg base)/3 mL nebulization #180 mL soln cariprazine 1.5 mg capsule 3 mg PO DAILY 07/12/24 01/06/25 (Vraylar) primidone 50 mg tablet 100 mg (2 x 50 mg) PO QHS #180 tabs 07/12/24 01/06/25 sertraline 25 mg tablet (Zoloft) 100 mg PO DAILY 07/31/24 01/06/25 magnesium oxide 500 mg capsule 500 mg PO DAILY 08/18/24 01/06/25 psyllium husk 3.4 gram/5.4 gram 1 tsp PO DAILY 09/13/24 01/06/25 oral powder (Metamucil) mepolizumab 100 mg/mL subcutaneous 100 mg subcut Q4W #1 mL 10/04/24 01/06/25 auto-injector (Nucala) polyethylene glycol 3350 17 gram 17 g PO DAILY 10/11/24 01/06/25 oral powder packet (Miralax) celecoxib 200 mg capsule 200 mg PO DAILY 10/12/24 01/06/25 azelastine 137 mcg (0.1 %) nasal 2 spray intranasal BID 07/28/25 09/27/25 spray budesonide 160 mcg-glycopyr 9 2 inh inhalation BID #10.7 grams 12/05/24 01/06/25 mcg-formot 4.8 mcg/actuation HFA inhaler (Breztri Aerosphere) linaclotide 145 mcg capsule 145 mcg PO DAILY 12/25/24 01/06/25 (Linzess) lamotrigine 200 mg tablet 200 mg PO DAILY 01/03/25 01/06/25 Previous Rx's ?Medication ?Instructions ?Recorded acetaminophen 500 mg tablet (Mapap 1,000 mg (2 x 500 mg) PO TID #180 05/28/16 Extra Strength) tabs propranolol 80 mg capsule,24 80 mg PO DAILY #90 caps 12/28/23 hr,extended release ipratropium 0.5 mg-albuterol 3 mg 3 ml inhalation QID PRN wheezing 06/07/24 (2.5 mg base)/3 mL nebulization #180 mL soln primidone 50 mg tablet 100 mg (2 x 50 mg) PO QHS #180 tabs 07/12/24 mepolizumab 100 mg/mL subcutaneous 100 mg subcut Q4W #1 mL 10/04/24 auto-injector (Nucala) budesonide 160 mcg-glycopyr 9 2 inh inhalation BID #10.7 grams 12/05/24 mcg-formot 4.8 mcg/actuation HFA inhaler (Breztri Aerosphere) Allergies Allergy/AdvReac Type Severity Reaction Status Date / Time NSAIDS (Non-Steroidal AdvReac Severe GI Bleeding Verified 01/06/25 23:12 Anti-Inflamma topiramate (From Topamax) AdvReac Severe confusion Verified 01/06/25 23:12 droperidol AdvReac Mild can't hold Verified 01/06/25 23:12 still risperidone (From Risperdal) AdvReac Mild milk Verified 01/06/25 23:12 comes in Exam Narrative Exam Narrative: Const: WDWN female in NAD. VS per triage. HEENT: NC/AT. Normal facial exam. Neck: Supple. Trachea midline. Lungs: Normal respiratory effort. Lungs are clear. Cor: Tachy but regular. Good radial pulses. GI: Soft/ND/NT. Neuro: A+O x 3. Normal speech, mentation, gait. Cranial nerves II - XII grossly intact. No gross motor or sensory deficit. Ext: No C/C/E. Medical Decision Making Patient arrives to ED with fast heart rate which she has never had previously. On the monitor it appears very regular no definite P waves identified. She has no associated symptoms otherwise. Her EKG per my read is junctional tachycardia with retrograde P wave versus possible aflutter. Discussed with patient, who is a retired nurse, using adenosine, reasoning why as well as side effects. Patient agreeable and pads placed. She was then given 6 mg adenosine which converted her back to sinus rhythm. Tracing was captured. Repeat EKG shows sinus rhythm with no acute ST changes. Laboratory studies were ordered including delta troponin and D-dimer, TSH though she is maintained on levothyroxine with no change in dosing for some time. Patient has remained in sinus rhythm. Her CBC is normal. Renal function is slightly above baseline but appears to swing [id number]. She is not significantly above readings she has had previously. Liver function is normal. Age-adjusted D-dimer is negative. She does not require any chest imaging. Delta troponin is flat. TSH just slightly above the normal range with a normal free T4. We have discussed the use of Valsalva maneuver at home if recurrent tachycardia. However, she is cautioned to return to ED if the tachycardia does not break or she has any associated symptoms. Will have her follow-up with primary care for further evaluation and consideration of outpatient monitor, cardiac echo, referral to cardiology. Medical Records Medical records reviewed: Yes I reviewed the patient's medical records. Lab Data Lab results reviewed: Yes I reviewed the patient's lab results. Lab results narrative: see [facility] ECG Data Attestation: I personally reviewed and interpreted this ECG (s) as follows: Prior ECG tracings: available for review Interpretation: see MDM/EKG Critical Care Time Critical Care Time Critical Care Time: Yes Total Critical Care Time: 35 Attestation: Upon my evaluation, this patient had a high probability of imminent or life-threatening deterioration, which required my direct attention, intervention, and personal management. I have personally provided 35 minutes of critical care time exclusive of time spent on separately billable procedures. Time includes monitoring for potential decompensation, ordering of tests and medications, review of laboratory and radiology results, discussion with consultants and documentation . Interventions were performed as documented above in procedures. PFS All Active Problems (Updated 01/07/25 @ 00:54 by Farhan Lozada MD) Junctional tachycardia (Acute) Bronchiectasis (Acute) Left rotator cuff tear (Acute) Degenerative joint disease of right hip (Chronic) Arthritis of left glenohumeral joint (Acute) DEPO MEDROL 08/18/24 Lung collapse (Acute) RML Ingrown toenail of right foot (Acute) Bunion, right foot (Acute) Squamous cell carcinoma of lower leg (Acute ~01/19/24) left strickland positive margins at base on recent shave bx Abnormal CT scan of lung (Acute) Rash (Acute) Persistent cough (Acute) Tremor (Acute) chronic Neck pain (Acute) Obstructed diaphragmatic hernia (Acute) Parkinsonism (Acute) Hyperthyroidism (Chronic) Onychomycosis (Acute) Pain in left foot (Acute) Hammertoe of left foot (Acute) Sleep apnea (Acute) Fibromyalgia (Acute) Asthma (Chronic) Allergic rhinitis (Acute) Vitamin D deficiency (Acute) Hypothyroidism (Chronic) Bipolar affective disorder, currently active (Acute) Osteoarthritis of left knee (Acute) Patellofemoral disorder of right knee (Acute) Iliotibial band syndrome, right leg (Acute) DEPO MEDROL 08/21/24 Vaginal atrophy (Acute 06/12/14) Pt used FemRing in past, changed to Vagifem and now has resumed FemRing use again. Primary osteoarthritis of right knee (Acute 03/12/16) Postnasal drip (Acute 11/12/14) Female perineal laxity (Acute 09/12/15) Essential tremor (Acute 04/27/17) Other disorders of Eustachian tube (Acute 04/17/13) Medical History Chronic constipation Lactose intolerance in adult Hiatal hernia Verruca plana Dysphagia Knee joint pain History of neck pain Atrophic vaginitis Breast cyst Mammogram abnormal Vulvar fissure (05/31/15) Serous otitis media (04/17/13) Otitis externa (06/18/14) Menopausal symptoms (06/12/14) increased in 2015 since stopping Femring. S/P Hysterectomy with ovarian conservation in past. ? coincidence vs effect of FemRing? Lichen sclerosus (06/12/14) dx in past. recently experiencing increased discomfort with intercourse Hypertrophy of labia minora (11/12/14) Dyspareunia (06/25/14) Allergic rhinitis due to other allergen (02/12/14) Allergy Tested at [facility]-Dr. Chaudhari 05/14/14 Vaginal atrophy Femring with good results. Surgical History History of appendectomy 12/12/1995 History of colonoscopy 11/11/1999 History of toe surgery ~s, surgical correction of hammertoes on toes #2-#5 bi-laterally. History of total right knee replacement Status post osteotomy mandibular osteotomy--1990 Hx of exploratory laparotomy Abdominal hysterectomy with distal ileum and transverse colon resection d/t possible volvulus-- 1995 Family History Mother Lupus Lung cancer Father COPD (chronic obstructive pulmonary disease) Social History Smoking/Tobacco Use Status: Never Smoking risk assessment performed?: Yes Alcohol Intake: never Drug use: Never Substance use type: does not use Housing: house Do you feel safe at home: Yes Do you feel safe in your relationship?: Yes
--- NOTE | 2025-01-06 23:15 | RT.EKG_ITS ---
APPROVED REPORT Exam: Resting ECG Reason for Exam: Rapid Heart Rate Patient Location: E HR:78 bpm ECG Measurements Heart Rate 78 AXIS NM 211 P 62 QRSd 93 QRS 56 QT 401 T 56 QTc 459 Conclusion Sinus rhythm...normal P axis, V-rate 60- 99 Left atrial enlargement...P, P'>60mS, <-0.15mV V1 Normal [facility]/Interval Normal ST
[2025-01-06 23:19] LABS: Abs Immature Grans 0.05 10^3/uL (0.0-0.06); HCT 44.6 % (36.0-46.0); HGB 14.8 g/dL (11.2-15.7); Immature Grans % 0.7 %; MCH 31.1 pg (27.0-33.0); MCHC 33.2 % (32.0-36.0); MCV 94 fL (80-95); MPV 9.6 fL (8.0-11.0); Platelet Count 291 10^3/uL (130-400); RBC 4.76 10^6/uL (3.93-5.22); RDW 12.0 % (11.7-14.6); RDW-SD 41.9 fL; WBC 6.82 10^3/uL (4.4-10.8)
[2025-01-06] MEDS: Adenosine 6 MG/2 ML VIAL IVP (23:21)
[2025-01-06] MEDS: Normal Saline 500 ML IV (23:22)
[2025-01-06 23:43] LABS: ALT 27 U/L (14-59); AST 32 U/L (15-37); Albumin 3.9 g/dL (3.4-5.0); Alkaline Phosphatase 103 U/L (46-116); Anion Gap 9.4 mmol/L (3-11); BUN 24 mg/dL (7-18); Bilirubin, Total 0.3 mg/dL (0.2-1.0); CO2 28.6 mmol/L (21.0-32.0); Calcium 9.3 mg/dL (8.5-10.1); Chloride 103 mmol/L (98-107); Estimated GFR 42.27 (mL/min/1.73m2); Glucose 108 mg/dL (74-106); Magnesium 2.2 mg/dL (1.8-2.4); Potassium 3.7 mmol/L (3.5-5.1); Sodium 141 mmol/L (136-145); TSH (W/Ref FT4) 3.78 uIU/mL (0.36-3.74); Total Protein 8.4 g/dL (6.4-8.2); Troponin I 6 ng/L (<or=51)
[2025-01-06 23:48] LABS: D-Dimer 513 ng/mlFEU (<500)
[2025-01-07] VITALS (15 sets, daily range): BP systolic 97–118; BP diastolic 36–52; PULSE 38–82; RESP 9–19; O2SAT 91–100
[2025-01-07 00:34] LABS: Troponin I 9 ng/L (<or=51)
== END 2025-01-07 01:20 | disposition home or self-care (01) ==
PROVIDERS: Emergency Provider Emergency Medicine; PCP Physician Assistant
DX: I47.19 Other supraventricular tachycardia (principal); R06.09 Other forms of dyspnea
CPT/HCPCS: 36415; 80053; 93005; 96361; 96374; 99291; 83735; 84439; 84443; 84484; 85025; 85379; 93010; J0153

== ENCOUNTER 2025-01-08 11:50 | Day surgery (SDC) | payer OTHER, SELFPAY ==
[2025-01-08] VITALS (22 sets, daily range): BP systolic 93–131; BP diastolic 48–68; PULSE 56–74; RESP 9–29; TEMP 36.2–36.5; O2SAT 92–100; BMI 26.6
--- NOTE | 2025-01-08 11:59 | W.ANESPRE ---
General Info Date of Service Date Performed: 01/08/25 Height: 5 ft 10 in Weight: 84.368 kg Body Mass Index (BMI): 26.6 Surgical Procedure: Operation Date: 01/08/25 13:10 Proposed Procedure Side Surgeon p Flexible Bronchoscopy Fuad Max MD Meds Allergies and Home Medications Allergies Allergy/AdvReac Type Severity Reaction Status Date / Time NSAIDS (Non-Steroidal AdvReac Severe GI Bleeding Verified 01/08/25 12:24 Anti-Inflamma topiramate (From Topamax) AdvReac Severe confusion Verified 01/08/25 12:24 droperidol AdvReac Mild can't hold Verified 01/08/25 12:24 still risperidone (From Risperdal) AdvReac Mild milk Verified 01/08/25 12:24 comes in Home Medication ?Medication ?Instructions ?Recorded estradiol acetate 0.1 mg/24 hr 1 ea vaginal DAILY ##1 06/13/14 vaginal ring (Femring) albuterol sulfate 90 mcg/actuation 2 puff inhalation Q4H PRN PRN 05/19/16 aerosol inhaler (ProAir HFA) acetaminophen 500 mg tablet (Mapap 1,000 mg (2 x 500 mg) PO TID #180 05/28/16 Extra Strength) tabs lamotrigine 25 mg tablet (Lamictal) 50 mg PO DAILY 10/07/21 montelukast 10 mg tablet 10 mg PO QHS 10/07/21 cholecalciferol (vitamin D3) 75 2,400 unit PO DAILY 06/25/22 mcg (3,000 unit) tablet modafinil 100 mg tablet 100 mg PO DAILY 06/25/22 pantoprazole 40 mg tablet,delayed 40 mg PO DAILY 12/17/23 release propranolol 80 mg capsule,24 80 mg PO DAILY #90 caps 12/28/23 hr,extended release levothyroxine 125 mcg capsule 137 mcg PO DAILY 05/01/24 loratadine-pseudoephedrine 1 tab PO DIRECTED PRN 05/01/24 multivitamin 1 tab PO DAILY PRN 05/01/24 ipratropium 0.5 mg-albuterol 3 mg 3 ml inhalation QID PRN wheezing 06/07/24 (2.5 mg base)/3 mL nebulization #180 mL soln cariprazine 1.5 mg capsule 3 mg PO DAILY 07/12/24 (Vraylar) primidone 50 mg tablet 100 mg (2 x 50 mg) PO QHS #180 tabs 07/12/24 sertraline 25 mg tablet (Zoloft) 100 mg PO DAILY 07/31/24 magnesium oxide 500 mg capsule 500 mg PO DAILY 08/18/24 psyllium husk 3.4 gram/5.4 gram 1 tsp PO DAILY 09/13/24 oral powder (Metamucil) mepolizumab 100 mg/mL subcutaneous 100 mg subcut Q4W #1 mL 10/04/24 auto-injector (Nucala) polyethylene glycol 3350 17 gram 17 g PO DAILY 10/11/24 oral powder packet (Miralax) celecoxib 200 mg capsule 200 mg PO DAILY 10/12/24 azelastine 137 mcg (0.1 %) nasal 2 spray intranasal BID 11/06/24 spray budesonide 160 mcg-glycopyr 9 2 inh inhalation BID #10.7 grams 12/05/24 mcg-formot 4.8 mcg/actuation HFA inhaler (Breztri Aerosphere) linaclotide 145 mcg capsule 145 mcg PO DAILY 12/25/24 (Linzess) lamotrigine 200 mg tablet 200 mg PO DAILY 01/03/25 Current Visit Medications: Current Medications Generic Name Dose Route Start Last Admin Trade Name Praneethq PRN Reason Stop Dose Admin Albuterol Sulfate 2.5 mg 01/08/25 06:00 Albuterol 2.5 Mg/3 Ml Inh Soln Vial UPD 01/08/25 23:59 TODAY [facility] Ringer's Solution 1,000 mls @ 30 mls/hr 01/08/25 06:00 IV 01/08/25 23:59 INFUSION [facility] IV Miscellaneous Supplies 1 each 01/08/25 06:00 Iv Access IV 01/08/25 23:59 DIRECTED KEYSHA Lidocaine HCl 2 ml 01/08/25 06:00 Lidocaine 2% Pres-Free 2 Ml Vial IJ 01/08/25 23:59 .PREMED KEYSHA Sodium Chloride 0 ml 01/08/25 06:00 Normal Saline Flush 10 Ml Syr IV 01/08/25 23:59 PRN PRN Sodium Chloride 0 ml 01/08/25 06:00 Normal Saline 10 Ml Vial IJ 01/08/25 23:59 DIRECTED PRN Sterile Water 0 ml 01/08/25 06:00 Water,Injection,Sterile 10 Ml Vial IJ 01/08/25 23:59 DIRECTED PRN PFS Active Problems Active Problems: Problem Status Onset Code Junctional tachycardia Acute I47.19 Bronchiectasis Acute J47.9 Left rotator cuff tear Acute M75.102 Degenerative joint disease of right hip Chronic M16.11 Arthritis of left glenohumeral joint Acute M19.012 Lung collapse Acute J98.19 Ingrown toenail of right foot Acute L60.0 Bunion, right foot Acute M21.611 Squamous cell carcinoma of lower leg Acute ~01/19/[address] scan of lung Acute R91.8 Rash Acute R21 Persistent cough Acute R05.3 Tremor Acute R25.1 Neck pain Acute M54.2 Obstructed diaphragmatic hernia Acute K44.0 Parkinsonism Acute G20.C Hyperthyroidism Chronic E05.90 Onychomycosis Acute B35.1 Pain in left foot Acute M79.672 Hammertoe of left foot Acute M20.42 Sleep apnea Acute Fibromyalgia Acute Asthma Chronic J45.909 Allergic rhinitis Acute J30.9 Vitamin D deficiency Acute E55.9 Hypothyroidism Chronic E03.9 Bipolar affective disorder, currently active Acute F31.9 Osteoarthritis of left knee Acute M17.12 Patellofemoral disorder of right knee Acute M22.2X1 Iliotibial band syndrome, right leg Acute M76.31 Vaginal atrophy Acute 06/12/14 N95.2 Primary osteoarthritis of right knee Acute 03/12/16 M17.11 Postnasal drip Acute 11/12/14 R09.82 Female perineal laxity Acute 09/12/15 N81.89 Essential tremor Acute 04/27/17 G25.0 Other disorders of Eustachian tube Acute 04/17/13 H69.80 Medical History Medical History Chronic constipation Lactose intolerance in adult Hiatal hernia Verruca plana Dysphagia Knee joint pain History of neck pain Atrophic vaginitis Breast cyst Mammogram abnormal Vulvar fissure (05/31/15) Serous otitis media (04/17/13) Otitis externa (06/18/14) Menopausal symptoms (06/12/14) increased in 2014 since stopping Femring. S/P Hysterectomy with ovarian conservation in past. ? coincidence vs effect of FemRing? Lichen sclerosus (06/12/14) dx in past. recently experiencing increased discomfort with intercourse Hypertrophy of labia minora (11/12/14) Dyspareunia (06/25/14) Allergic rhinitis due to other allergen (02/12/14) Allergy Tested at [facility]-Dr. Chaudhari 05/14/14 Vaginal atrophy Femring with good results. Surgical History Surgical History History of appendectomy 12/12/1995 History of colonoscopy 11/11/1999 History of toe surgery ~s, surgical correction of hammertoes on toes #2-#5 bi-laterally. History of total right knee replacement Status post osteotomy mandibular osteotomy--1990 Hx of exploratory laparotomy Abdominal hysterectomy with distal ileum and transverse colon resection d/t possible volvulus-- 1995 Tobacco Smoking/Tobacco Use Status: Never Passive smoking exposure: Yes Alcohol Alcohol Intake: never Substance Use Substance use: Never Substance use type: does not use Vital Signs and Lab Results Vital Signs Most Recent Vital Signs in EMR: Temp Pulse Resp BP Pulse Ox 36.4 C L 56 L 16 131/68 100 01/08/25 12:36 01/08/25 12:36 01/08/25 12:36 01/08/25 12:36 01/08/25 12:36 Lab Results Complete Blood Count: WBC, (4.4-10.8) 6.82 10^3/uL 01/06/25, 23:14 RBC, (3.93-5.22) 4.76 10^6/uL 01/06/25, 23:14 Hgb, (11.2-15.7) 14.8 g/dL 01/06/25, 23:14 Hct, (36.0-46.0) 44.6 % 01/06/25, 23:14 Plt Count, (130-400) 291 10^3/uL 01/06/25, 23:14 Complete Metabolic Panel: Sodium, (136-145) 141 mmol/L 01/06/25, 23:14 Potassium, (3.5-5.1) 3.7 mmol/L 01/06/25, 23:14 Chloride, (98-107) 103 mmol/L 01/06/25, 23:14 Carbon Dioxide, (21.0-32.0) 28.6 mmol/L 01/06/25, 23:14 BUN, (7-18) 24 mg/dL H 01/06/25, 23:14 Creatinine, (0.55-1.02) 1.4 mg/dL H 01/06/25, 23:14 Est GFR (CKD-EPI 2020), (mL/min/1.73m2) 42.27 01/06/25, 23:14 Magnesium, (1.8-2.4) 2.2 mg/dL 01/06/25, 23:14 Calcium, (8.5-10.1) 9.3 mg/dL 01/06/25, 23:14 Albumin, (3.4-5.0) 3.9 g/dL 01/06/25, 23:14 Glucose, (74-106) 108 mg/dL H 01/06/25, 23:14 Liver Function Panel: ALT, (14-59) 27 U/L 01/06/25, 23:14 AST, (15-37) 32 U/L 01/06/25, 23:14 Coagulation Panel: D-Dimer, (<500) 513 ng/mlFEU H 01/06/25, 23:14 Cardiac Panel: Troponin I, (<or=51) 9 ng/L 01/07/25 Thyroid Panel: TSH, (0.36-3.74) 3.78 uIU/mL H 01/06/25, 23:14 Imaging and Studies Imaging and Studies Study information below may be from another EMR and interpreted by another provider. Please see original notes in EMR for more complete details. CT Summary: 12-13-24 FINDINGS: Tracheobronchial tree: Patent where visualized. There is bronchiectasis seen in the right middle lobe. Pulmonary parenchyma: There is atelectasis in the left lower lobe. The left lung is otherwise clear. There is persistent collapse of the right middle lobe with resultant air bronchograms. Linear opacities are again seen in the right upper lobe which appears stable. There are no new infiltrates in the lungs. There is again seen hyperexpansion of the right lower lobe. Mediastinum and Jeannette: No dominant adenopathy or fluid collection. The esophagus is unremarkable. There is a stable rightward midline shift of the mediastinum secondary to the loss of volume of the right middle lobe. Thyroid gland: Unremarkable. Pleura: No effusion or pneumothorax. Heart: The heart is not dilated. No coronary artery calcifications are seen. No pericardial effusion. Aorta: Thoracic aorta non-dilated. Mild atherosclerotic calcification is present. Upper abdomen: Unremarkable. Lymph nodes: Within normal limits. Soft tissues: Unremarkable. Bones:Within normal limits for the patient's age. There are age-appropriate degenerative changes seen in the thoracic spine. IMPRESSION: 1. Stable appearance of the right lobe with loss of volume and bronchiectasis. 2. Atelectasis in the left lower lobe. Otherwise, stable appearance of the lungs. Pulmonary Function Summary: Date of service: 01/18/24 Time of Service: 10:06 Pulmonary Function Test Result Indications: Cough Interpretation Spirometry: There is moderate airflow limitation at baseline. The FEV1 decreased by 24% with administration of 1mg/mL metehacholine. Lung Volumes: There is air trapping Diffusion Capacity: Normal diffusion Airway Pressure: Increased airways resistance Impression Moderate airflow limitation at baseline with a positive methacholine challenge. These findings are consistent with asthma. Clinical Correlation therefore is recommended. Anesthesia Assessment and Plan Anesthesia History Personal History: PONV Family History: No Family History of Anesthesia Complications Exercise Tolerance Exercise Tolerance: Metabolic Equivalents>4 Cardiac & Pulmonary Exam Cardiac Exam: Normal S1/S2 Heart Sounds Pulmonary Exam: Clear Bilateral Breath Sounds Implantable Cardiac Device Does patient have a Pacemaker or an ICD?: No Airway Exam Known Difficult Airway: No Mallampati Class: 2 Mouth Opening: Normal (> 3cm) Thyromental Distance: Greater than 3 cm Neck Range of Motion: Full ROM Neck Circumference: Normal Teeth Condition: Normal Dentition ASA Classification ASA Score: ASA 2 Emergency Case?: No NPO Status NPO Status: NPO Clears >2 hours, Solids >8 hours Anesthesia Plan Resuscitation Status: Full Code Anesthesia Technique: General Anesthesia Airway Planned: LMA Monitors Used: Standard Monitors Preoperative Comments:: 64 yo for bronch. Recent ED visit with SVT, converted with adenosine. Sig PMHx: bronchiectasis, asthma (albuterol, ipratropium, breztri), MARINO, GERD (pantorazole), parkinsonism/tremor, hypothyroid (on replacement), bipolar, fibromyalgia. Previous Anes: PONV in the past - bronch, LMA 4, no issues.
--- NOTE | 2025-01-08 12:00 | RT.EKG_ITS ---
APPROVED REPORT Exam: Resting ECG Reason for Exam: RECENT TACHY EPISODE Patient Location: O HR:57 bpm ECG Measurements Heart Rate 57 AXIS MN 174 P 25 QRSd 100 QRS 58 QT 450 T 57 QTc 440 Conclusion Sinus bradycardia...rate< 60 Normal Electrocardiogram
--- NOTE | 2025-01-08 12:22 | W.PREOPHP ---
Assessment and Plan Assessment and plan (1) Bronchiectasis: Status: Acute Assessment and plan: Proceed with bronchoscopy with BAL of the RML History of Present Illness History of Present Illness Chief Complaint: Bronchiectasis Narrative: See pulmonary clinic note for full details. 64 yo who presents for bronchoscopy to evaluate bronchiectasis. No clinical changes since her last clinic visit on 11/06/24. Unfortunately, due to lab error cultures were not completed after her initial procedure. She is here for repeat bronchoscopy with BAL. Had an episode of SVT last week. Was seen in the ED and was given adenosine. Has not had any further palpitations. No chest pain. No significant cough or dyspnea. Review of Systems Narrative: 6 pt ROS negative except as above PFSH All Active Problems (Updated 01/07/25 @ 00:54 by Farhan Lozada MD) Junctional tachycardia (Acute) Bronchiectasis (Acute) Left rotator cuff tear (Acute) Degenerative joint disease of right hip (Chronic) Arthritis of left glenohumeral joint (Acute) DEPO MEDROL 08/18/24 Lung collapse (Acute) RML Ingrown toenail of right foot (Acute) Bunion, right foot (Acute) Squamous cell carcinoma of lower leg (Acute ~01/19/24) left strickland positive margins at base on recent shave bx Abnormal CT scan of lung (Acute) Rash (Acute) Persistent cough (Acute) Tremor (Acute) chronic Neck pain (Acute) Obstructed diaphragmatic hernia (Acute) Parkinsonism (Acute) Hyperthyroidism (Chronic) Onychomycosis (Acute) Pain in left foot (Acute) Hammertoe of left foot (Acute) Sleep apnea (Acute) Fibromyalgia (Acute) Asthma (Chronic) Allergic rhinitis (Acute) Vitamin D deficiency (Acute) Hypothyroidism (Chronic) Bipolar affective disorder, currently active (Acute) Osteoarthritis of left knee (Acute) Patellofemoral disorder of right knee (Acute) Iliotibial band syndrome, right leg (Acute) DEPO MEDROL 08/21/24 Vaginal atrophy (Acute 06/12/14) Pt used FemRing in past, changed to Vagifem and now has resumed FemRing use again. Primary osteoarthritis of right knee (Acute 03/12/16) Postnasal drip (Acute 11/12/14) Female perineal laxity (Acute 09/12/15) Essential tremor (Acute 04/27/17) Other disorders of Eustachian tube (Acute 04/17/13) Medical History Chronic constipation Lactose intolerance in adult Hiatal hernia Verruca plana Dysphagia Knee joint pain History of neck pain Atrophic vaginitis Breast cyst Mammogram abnormal Vulvar fissure (05/31/15) Serous otitis media (04/17/13) Otitis externa (06/18/14) Menopausal symptoms (06/12/14) increased in 2015 since stopping Femring. S/P Hysterectomy with ovarian conservation in past. ? coincidence vs effect of FemRing? Lichen sclerosus (06/12/14) dx in past. recently experiencing increased discomfort with intercourse Hypertrophy of labia minora (11/12/14) Dyspareunia (06/25/14) Allergic rhinitis due to other allergen (02/12/14) Allergy Tested at [facility]-Dr. Chaudhari 05/14/14 Vaginal atrophy Femring with good results. Surgical History History of appendectomy 12/12/1995 History of colonoscopy 11/11/1999 History of toe surgery ~s, surgical correction of hammertoes on toes #2-#5 bi-laterally. History of total right knee replacement Status post osteotomy mandibular osteotomy--1990 Hx of exploratory laparotomy Abdominal hysterectomy with distal ileum and transverse colon resection d/t possible volvulus-- 1995 Family History Mother Lupus Lung cancer Father COPD (chronic obstructive pulmonary disease) Social History Smoking/Tobacco Use Status: Never Smoking risk assessment performed?: Yes Alcohol Intake: never Drug use: Never Substance use type: does not use Housing: house Do you feel safe at home: Yes Do you feel safe in your relationship?: Yes Meds Allergies and Home Medications Allergies Allergy/AdvReac Type Severity Reaction Status Date / Time NSAIDS (Non-Steroidal AdvReac Severe GI Bleeding Verified 01/08/25 12:24 Anti-Inflamma topiramate (From Topamax) AdvReac Severe confusion Verified 01/08/25 12:24 droperidol AdvReac Mild can't hold Verified 01/08/25 12:24 still risperidone (From Risperdal) AdvReac Mild milk Verified 01/08/25 12:24 comes in Home Medications ?Medication ?Instructions ?Recorded ?Confirmed ?Type estradiol acetate 0.1 mg/24 hr 1 ea vaginal DAILY ##1 06/13/14 01/06/25 History vaginal ring (Femring) albuterol sulfate 90 mcg/actuation 2 puff inhalation Q4H PRN PRN 05/19/16 01/06/25 History aerosol inhaler (ProAir HFA) acetaminophen 500 mg tablet (Mapap 1,000 mg (2 x 500 mg) PO TID #180 05/28/16 01/06/25 Rx Extra Strength) tabs lamotrigine 25 mg tablet (Lamictal) 50 mg PO DAILY 10/07/21 01/06/25 History montelukast 10 mg tablet 10 mg PO QHS 10/07/21 01/06/25 History cholecalciferol (vitamin D3) 75 2,400 unit PO DAILY 06/25/22 01/06/25 History mcg (3,000 unit) tablet modafinil 100 mg tablet 100 mg PO DAILY 06/25/22 01/06/25 History pantoprazole 40 mg tablet,delayed 40 mg PO DAILY 12/17/23 01/06/25 History release propranolol 80 mg capsule,24 80 mg PO DAILY #90 caps 12/28/23 01/06/25 Rx hr,extended release levothyroxine 125 mcg capsule 137 mcg PO DAILY 05/01/24 01/06/25 History loratadine-pseudoephedrine 1 tab PO DIRECTED PRN 05/01/24 01/06/25 History multivitamin 1 tab PO DAILY PRN 05/01/24 01/06/25 History ipratropium 0.5 mg-albuterol 3 mg 3 ml inhalation QID PRN wheezing 06/07/24 01/06/25 Rx (2.5 mg base)/3 mL nebulization #180 mL soln cariprazine 1.5 mg capsule 3 mg PO DAILY 07/12/24 01/06/25 History (Vraylar) primidone 50 mg tablet 100 mg (2 x 50 mg) PO QHS #180 tabs 07/12/24 01/06/25 Rx sertraline 25 mg tablet (Zoloft) 100 mg PO DAILY 07/31/24 01/06/25 History magnesium oxide 500 mg capsule 500 mg PO DAILY 08/18/24 01/06/25 History psyllium husk 3.4 gram/5.4 gram 1 tsp PO DAILY 09/13/24 01/06/25 History oral powder (Metamucil) mepolizumab 100 mg/mL subcutaneous 100 mg subcut Q4W #1 mL 10/04/24 01/06/25 Rx auto-injector (Nucala) polyethylene glycol 3350 17 gram 17 g PO DAILY 10/11/24 01/06/25 History oral powder packet (Miralax) celecoxib 200 mg capsule 200 mg PO DAILY 10/12/24 01/06/25 History azelastine 137 mcg (0.1 %) nasal 2 spray intranasal BID 11/06/24 01/06/25 History spray budesonide 160 mcg-glycopyr 9 2 inh inhalation BID #10.7 grams 12/05/24 01/06/25 Rx mcg-formot 4.8 mcg/actuation HFA inhaler (Breztri Aerosphere) linaclotide 145 mcg capsule 145 mcg PO DAILY 12/25/24 01/06/25 History (Linzess) lamotrigine 200 mg tablet 200 mg PO DAILY 01/03/25 01/06/25 History Exam Narrative Exam Narrative: General: alert, no acute distress Head: normocephalic ENT: no stridor, trachea midline CV: normal rate, regular rhythm Respiratory: no wheezing, no crackles, no rhonchi, no prolonged expiration GI: abd soft, non-tender, non-distended Skin: no rashes Extremities: no edema, no digital clubbing Psych: normal affect Results Imaging CT scan - chest: report reviewed and image reviewed Labs Labs: Labs reviewed
[2025-01-08] MEDS: Lactated Ringers 1,000 ML 30 ML IV (12:49)
[2025-01-08] MEDS: Levalbuterol 0.63 MG/3 ML UPD VIAL UPD (12:56)
[2025-01-08] MEDS: Lidocaine 2% Pres-Free 2 ML VIAL IJ (12:57)
[2025-01-08] MEDS: Lidocaine 1% Pres-Free 5 ML VIAL (13:12)
--- NOTE | 2025-01-08 13:30 | ROE_ITS ---
Operative Note Operative Note PRE-OP DIAGNOSIS: Bronchiectasis POST-OP DIAGNOSIS: same Bronchomalacia - bilateral PROCEDURE: Fiberoptic bronchoscopy with BAL of the right middle lobe SURGEON: Fuad Max ANESTHESIA TYPE: General LMA/ETT (Under the direction the anesthesiology team and as per anesthesia record) Refer to Anesthesia Record ESTIMATED BLOOD LOSS: 0 Procedure Description: The risks (including bleeding, respiratory failure, and pneumothorax), benefits, and alternatives of the procedure were discussed with the patient and consent was obtained.? A Time Out was held and the above information confirmed. Following the induction of general anesthesia, the patient was ventilation thr ough an LMA. The bronchoscope was passed through the LMA. The vocal cords were visualized and lidocaine was topically placed onto the cords. The cords were normal. The scope was then passed into the trachea.?Additional lidocaine was used topically.? A full endobronchial examination was performed.? There was bilateral bronchomalacia in the RML, RLL, KASSANDRA, and LLL bronchi. There were minimal secretion in the RML and RLL. No endobronchial masses/lesions were noted. 80 mL of saline was injected into the medial segment of the RML and 20 mL was aspirated. The fluid appeared cloudy/opaque. BAL fluid was sent for bacterial/fungal/afb cultures, and cell count The Patient was taken to the Endoscopy Recovery area in satisfactory condition. Date of Procedure: 01/08/25
--- NOTE | 2025-01-08 13:44 | W.ANESPOSTOP ---
Postoperative Evaluation Date, Time and Location Date Performed: 01/08/25 Time Performed: 13:44 Patient Location: PACU Vital Signs Most Recent Imported Vital Signs: Most Recent Vital Signs Temp Pulse Resp BP Pulse Ox 36.3 C L 63 14 106/49 L 98 01/08/25 13:41 01/08/25 13:41 01/08/25 13:41 01/08/25 13:41 01/08/25 13:41 Pain Score Most Recent Pain Score: Most Recent Pain Score Pain Level 0 01/08/25 12:36 Assessment Mental Status: Arousable with meaningful communication Airway and Respiratory Function: Patent airway with normal (patient baseline) respiratory exam Cardiovascular Function: Hemodynamically Stable Hydration Status: Adequately Hydrated Nausea & Vomiting: No Nausea or Vomiting Pain: Pt. Denies Any Pain Peripheral Nerve Block: Patient did not receive a nerve block
== END 2025-01-08 15:55 | disposition home or self-care (01) ==
PROVIDERS: PCP Physician Assistant; Visit Provider Internal Medicine Pulmonary Disease
PROC: 0BJ08ZZ Inspection of Tracheobronchial Tree, Via Natural or Artificial Opening Endoscopic (ICD-10-PCS; CPT 31622; principal; 2025-01-08 13:00)
DX: J47.9 Bronchiectasis, uncomplicated (principal); K21.9 Gastro-esophageal reflux disease without esophagitis
CPT/HCPCS: 31624; 87070; 87077; 87102; 87107; 87116; 87186; 87205; 87206; 93005; 93010; 94640; J2003; J2250; J2405; J2704; J7614

== ENCOUNTER 2025-02-08 06:01 | Day surgery (SDC) | payer OTHER, SELFPAY ==
[2025-02-08] VITALS (42 sets, daily range): BP systolic 113–161; BP diastolic 59–79; PULSE 58–67; RESP 8–25; TEMP 36.2–36.4; O2SAT 94–100; BMI 26.6
[2025-02-08] MEDS: Lactated Ringers 1,000 ML 30 ML IV (06:49)
--- NOTE | 2025-02-08 06:56 | W.ANESPRE ---
General Info Date of Service Date Performed: 02/08/25 Height: 5 ft 10 in Weight: 84.3 kg Body Mass Index (BMI): 26.6 Surgical Procedure: Operation Date: 02/08/25 07:40 Proposed Procedure Side Surgeon p Shoulder Reverse Total Arthroplasty, Biceps Tenodesis Left Santos Duke MD Meds Allergies and Home Medications Allergies Allergy/AdvReac Type Severity Reaction Status Date / Time NSAIDS (Non-Steroidal AdvReac Severe GI Bleeding Verified 02/08/25 06:16 Anti-Inflamma topiramate (From Topamax) AdvReac Severe confusion Verified 02/08/25 06:16 droperidol AdvReac Mild can't hold Verified 02/08/25 06:16 still risperidone (From Risperdal) AdvReac Mild milk Verified 02/08/25 06:16 comes in Home Medication Medication Instructions Recorded estradiol acetate 0.1 mg/24 hr 1 ea vaginal DAILY ##1 06/13/14 vaginal ring (Femring) albuterol sulfate 90 mcg/actuation 2 puff inhalation Q4H PRN PRN 05/19/16 aerosol inhaler (ProAir HFA) acetaminophen 500 mg tablet (Mapap 1,000 mg (2 x 500 mg) PO TID #180 05/28/16 Extra Strength) tabs lamotrigine 25 mg tablet (Lamictal) 50 mg PO DAILY 10/07/21 montelukast 10 mg tablet 10 mg PO QHS 10/07/21 cholecalciferol (vitamin D3) 75 2,400 unit PO DAILY 06/25/22 mcg (3,000 unit) tablet modafinil 100 mg tablet 100 mg PO DAILY 06/25/22 pantoprazole 40 mg tablet,delayed 40 mg PO DAILY 12/17/23 release propranolol 80 mg capsule,24 80 mg PO DAILY #90 caps 12/28/23 hr,extended release levothyroxine 125 mcg capsule 137 mcg PO DAILY 05/01/24 multivitamin 1 tab PO DAILY PRN 05/01/24 ipratropium 0.5 mg-albuterol 3 mg 3 ml inhalation QID PRN wheezing 06/07/24 (2.5 mg base)/3 mL nebulization #180 mL soln cariprazine 1.5 mg capsule 3 mg PO DAILY 07/12/24 (Vraylar) sertraline 25 mg tablet (Zoloft) 100 mg PO DAILY 07/31/24 magnesium oxide 500 mg capsule 500 mg PO DAILY 08/18/24 psyllium husk 3.4 gram/5.4 gram 1 tsp PO DAILY 09/13/24 oral powder (Metamucil) mepolizumab 100 mg/mL subcutaneous 100 mg subcut Q4W #1 mL 10/04/24 auto-injector (Nucala) polyethylene glycol 3350 17 gram 17 g PO DAILY 10/11/24 oral powder packet (Miralax) celecoxib 200 mg capsule 200 mg PO DAILY 10/12/24 azelastine 137 mcg (0.1 %) nasal 2 spray intranasal BID 11/06/24 spray lamotrigine 200 mg tablet 200 mg PO DAILY 01/03/25 budesonide 160 mcg-glycopyr 9 2 inh inhalation BID #10.7 grams 01/11/25 mcg-formot 4.8 mcg/actuation HFA inhaler (Breztri Aerosphere) linaclotide 145 mcg capsule 290 mcg PO DAILY 02/07/25 (Linzess) Current Visit Medications: Current Medications Generic Name Dose Route Start Last Admin Trade Name Freq PRN Reason Stop Dose Admin Ringer's Solution 1,000 mls @ 30 mls/hr 02/08/25 06:00 02/08/25 06:49 IV 02/08/25 23:59 30 mls/hr INFUSION KEYSHA Administration Cefazolin Sodium/Dextrose 2 gm in 50 mls @ 100 mls/hr 02/08/25 06:00 Ancef Duplex IVPB 02/08/25 23:59 PREOP KEYSHA Tranexamic Acid/Sodium Chloride 1,000 mg in 100 mls @ 600 mls/hr 02/08/25 06:00 IVPB 02/08/25 23:59 PREOP KEYSHA IV Miscellaneous Supplies 1 each 02/08/25 06:00 Iv Access IV 02/08/25 23:59 DIRECTED KEYSHA Sodium Chloride 0 ml 02/08/25 06:00 Normal Saline Flush 10 Ml Syr IV 02/08/25 23:59 PRN PRN Sodium Chloride 0 ml 02/08/25 06:00 Normal Saline 10 Ml Vial IJ 02/08/25 23:59 DIRECTED PRN Sterile Water 0 ml 02/08/25 06:00 Water,Injection,Sterile 10 Ml Vial IJ 02/08/25 23:59 DIRECTED PRN PFSH Active Problems Active Problems: Problem Status Onset Code Callus Acute L84 Bronchiectasis Acute J47.9 Left rotator cuff tear Acute M75.102 Degenerative joint disease of right hip Chronic M16.11 Arthritis of left glenohumeral joint Acute M19.012 Lung collapse Acute J98.19 Ingrown toenail of right foot Acute L60.0 Bunion, right foot Acute M21.611 Squamous cell carcinoma of lower leg Acute ~01/19/[address] scan of lung Acute R91.8 Rash Acute R21 Persistent cough Acute R05.3 Tremor Acute R25.1 Neck pain Acute M54.2 Obstructed diaphragmatic hernia Acute K44.0 Parkinsonism Acute G20.C Hyperthyroidism Chronic E05.90 Onychomycosis Acute B35.1 Pain in left foot Acute M79.672 Hammertoe of left foot Acute M20.42 Bipolar affective disorder, currently active Acute F31.9 Hypothyroidism Chronic E03.9 Vitamin D deficiency Acute E55.9 Allergic rhinitis Acute J30.9 Asthma Chronic J45.909 Osteoarthritis of left knee Acute M17.12 Patellofemoral disorder of right knee Acute M22.2X1 Iliotibial band syndrome, right leg Acute M76.31 Vaginal atrophy Acute 06/12/14 N95.2 Primary osteoarthritis of right knee Acute 03/12/16 M17.11 Postnasal drip Acute 11/12/14 R09.82 Female perineal laxity Acute 09/12/15 N81.89 Essential tremor Acute 04/27/17 G25.0 Other disorders of Eustachian tube Acute 04/17/13 H69.80 Fibromyalgia Acute Sleep apnea Acute Medical History Medical History Hypothyroidism Atrophic vaginitis Dyspareunia (06/25/14) Hypertrophy of labia minora (11/12/14) Lichen sclerosus (06/12/14) dx in past. recently experiencing increased discomfort with intercourse Menopausal symptoms (06/12/14) increased in 2014 since stopping Femring. S/P Hysterectomy with ovarian conservation in past. ? coincidence vs effect of FemRing? Vulvar fissure (05/31/15) Serous otitis media (04/17/13) Otitis externa (06/18/14) Allergic rhinitis due to other allergen (02/12/14) Allergy Tested at [facility]-Dr. Chaudhari 05/14/14 Chronic constipation Lactose intolerance in adult Hiatal hernia Verruca plana Dysphagia Knee joint pain History of neck pain Breast cyst Mammogram abnormal Vaginal atrophy Femring with good results. Surgical History Surgical History History of appendectomy 12/12/1995 History of colonoscopy 11/11/1999 History of toe surgery ~s, surgical correction of hammertoes on toes #2-#5 bi-laterally. History of total right knee replacement Status post osteotomy mandibular osteotomy--1990 Hx of exploratory laparotomy Abdominal hysterectomy with distal ileum and transverse colon resection d/t possible volvulus-- 1995 Tobacco Smoking/Tobacco Use Status: Never Passive smoking exposure: Yes Alcohol Alcohol Intake: never Substance Use Substance use: Never Substance use type: does not use Vital Signs and Lab Results Vital Signs Most Recent Vital Signs in EMR: Most Recent Vital Signs Temp Pulse Resp BP Pulse Ox 36.4 C L 64 16 124/60 99 02/08/25 06:02 02/08/25 06:02 02/08/25 06:02 02/08/25 06:02 02/08/25 06:02 Imaging and Studies Imaging and Studies Study information below may be from another EMR and interpreted by another provider. Please see original notes in EMR for more complete details. EKG Summary: 01/08/25 Resting ECG Reason for Exam: RECENT TACHY EPISODE Patient Location: O HR:57 bpm ECG Measurements Heart Rate 57 AXIS AZ 174 P 25 QRSd 100 QRS 58 QT 450 T57 QTc 440 Conclusion Sinus bradycardia...rate< [address] Summary: 12-13-24 FINDINGS: Tracheobronchial tree: Patent where visualized. There is bronchiectasis seen in the right middle lobe. Pulmonary parenchyma: There is atelectasis in the left lower lobe. The left lung is otherwise clear. There is persistent collapse of the right middle lobe with resultant air bronchograms. Linear opacities are again seen in the right upper lobe which appears stable. There are no new infiltrates in the lungs. There is again seen hyperexpansion of the right lower lobe. Mediastinum and Jeannette: No dominant adenopathy or fluid collection. The esophagus is unremarkable. There is a stable rightward midline shift of the mediastinum secondary to the loss of volume of the right middle lobe. Thyroid gland: Unremarkable. Pleura: No effusion or pneumothorax. Heart: The heart is not dilated. No coronary artery calcifications are seen. No pericardial effusion. Aorta: Thoracic aorta non-dilated. Mild atherosclerotic calcification is present. Upper abdomen: Unremarkable. Lymph nodes: Within normal limits. Soft tissues: Unremarkable. Bones:Within normal limits for the patient's age. There are age-appropriate degenerative changes seen in the thoracic spine. IMPRESSION: 1. Stable appearance of the right lobe with loss of volume and bronchiectasis. 2. Atelectasis in the left lower lobe. Otherwise, stable appearance of the lungs. Pulmonary Function Summary: Date of service: 01/18/24 Time of Service: 10:06 Pulmonary Function Test Result Indications: Cough Interpretation Spirometry: There is moderate airflow limitation at baseline. The FEV1 decreased by 24% with administration of 1mg/mL metehacholine. Lung Volumes: There is air trapping Diffusion Capacity: Normal diffusion Airway Pressure: Increased airways resistance Impression Moderate airflow limitation at baseline with a positive methacholine challenge. These findings are consistent with asthma. Clinical Correlation therefore is recommended. Anesthesia Assessment and Plan Anesthesia History Personal History: PONV Family History: No Family History of Anesthesia Complications Exercise Tolerance Exercise Tolerance: Metabolic Equivalents>4 Pertinent Negatives Pertinent Negatives: No Symptoms of GERD, No Major Cardiovascular Symptoms or Complaints and No History of CVA/TIA Cardiac & Pulmonary Exam Cardiac Exam: Normal S1/S2 Heart Sounds Pulmonary Exam: Wheezing Present (LLL. chronic SOB/GURROLA) Implantable Cardiac Device Does patient have a Pacemaker or an ICD?: No Airway Exam Known Difficult Airway: No Mallampati Class: 2 Mouth Opening: Normal (> 3cm) Thyromental Distance: Greater than 3 cm Neck Range of Motion: Full ROM Neck Circumference: Normal Teeth Condition: Generalized Poor Dentition and Loose or Chipped ASA Classification ASA Score: ASA 3 Emergency Case?: No NPO Status NPO Status: NPO Clears >2 hours, Solids >8 hours Anesthesia Plan Resuscitation Status: Full Code Anesthesia Technique: General Anesthesia Airway Planned: Endotracheal Tube Monitors Used: Standard Monitors and SedLine
--- NOTE | 2025-02-08 07:10 | W.PM.DSUDISC ---
Date of service: 02/08/25 Discharge Plan Disposition Patient Disposition: Home Condition: Stable Discharge Details Attending Provider: Santos Duke Primary Care Provider: Justin Medina Home Meds and New Rx's Prescriptions: New oxycodone 5 mg tablet 5 - 10 mg PO Q4H PRN (Reason: Moderate to severe pain) Qty: 18 0RF minocycline 100 mg capsule 100 mg PO BID 14 Days Qty: 28 0RF Rx Instructions: use with daily probiotic or yogurt Bio-K plus 50 billion cell capsule,delayed release(DR/EC) 1 cap PO DAILY 14 Days Qty: 14 0RF Continued propranolol 80 mg capsule,extended release 24 hr 80 mg PO DAILY Qty: 90 3RF Metamucil 3.4 gram/5.4 gram powder 1 tsp PO DAILY Rx Instructions: mix into at least 4 oz water or juice before administering magnesium oxide 500 mg capsule 500 mg PO DAILY lamotrigine 200 mg tablet 200 mg PO DAILY cholecalciferol (vitamin D3) 75 mcg (3,000 unit) tablet 2,400 unit PO DAILY modafinil 100 mg tablet 100 mg PO DAILY multivitamin Tablet 1 tab PO DAILY PRN levothyroxine 125 mcg capsule 137 mcg PO DAILY ipratropium-albuterol 0.5 mg-3 mg(2.5 mg base)/3 mL solution for nebulization 3 ml inhalation QID PRN (Reason: wheezing) Qty: 180 3RF sertraline [Zoloft] 25 mg tablet 100 mg PO DAILY Patient Comments: per patient azelastine 137 mcg (0.1 %) spray,non-aerosol 2 spray intranasal BID Patient Comments: USE 2 SPRAYS IN EACH NOSTRIL TWO TIMES A DAY polyethylene glycol 3350 [Miralax] 17 gram powder in packet 17 g PO DAILY celecoxib 200 mg capsule 200 mg PO DAILY Femring 1 EACH ring 1 ea VG DAILY Qty: 1 Patient Comments: use 1 ring every 3 months Rx Instructions: insert and leave in place for 3months lamotrigine [Lamictal] 25 mg tablet 50 mg PO DAILY montelukast 10 mg tablet 10 mg PO QHS pantoprazole 40 mg tablet,delayed release (DR/EC) 40 mg PO DAILY Vraylar 1.5 mg capsule 3 mg PO DAILY Nucala 100 mg/mL auto-injector 100 mg subcut Q4W Qty: 1 12RF Breztri Aerosphere 160-9-4.8 mcg/actuation HFA aerosol inhaler 2 inh inhalation BID Qty: 10.7 12RF albuterol sulfate [ProAir HFA] 200 PUFF HFA aerosol inhaler 2 puff Inhalation Q4H PRN PRN acetaminophen [Mapap Extra Strength] 500 MG tablet 1,000 mg PO TID Qty: 180 3RF Linzess 145 mcg capsule 290 mcg PO DAILY Patient Comments: TAKE ONE CAPSULE BY MOUTH EVERY DAY Discharge Instructions Additional Instructions: Surgery: Left reverse total shoulder arthroplasty (subscapularis repair, supraspinatus preserved) with biceps tenodesis 02/08/2025 Activity: Do not lift anything heavier than a coffee. You should keep your arm at your side in a relatively neutral position at all times except for gentle range of motion exercises, physical therapy, and essential activities. You should use the sling whenever you are out of the house. At home it is best to remove the sling and rest the arm on a pillow at your side or support the operative side with your other hand. A physical therapy prescription will be sent electronically to start in about 3 weeks. CONSERVATIVE reverse TSA Protocol. Prescriptions: Resume already prescribed Celebrex as directed Minocycline 100 mg take 1 every 12 hours for 14 days to prevent infection (use with daily probiotic or yogurt) Oxycodone 5 mg take 1-2 every 4-6 hours as needed for severe pain You may use [id number] Tylenol (acetaminophen) as needed for mild pain. These pain medications may be taken all at once or in different combinations as needed. Also, recommend Colace (docusate) as a stool softener as surgery and pain medicine cause constipation. You may try [id number] diphenhydramine (Benadryl) 25-50 mg nightly as a sleep aid Dressings: Leave dressing in place until follow-up. Keep clean and dry at all times. No showers please. Follow-up: 10-[address] Duke You may take off the leg compression stockings this evening at home. You may also leave them on a few days longer if you have a history of leg swelling or edema. Please call the office during business hours with any questions or concerns. Let us know right away if you develop any redness, drainage, fevers, chest pain, or trouble breathing. Do not drink alcohol or drive for at least 24 hours after anesthesia. Stand Alone Forms: Anesthesia Discharge Inst., Gamaliel Pineda ([facility]) Referrals: Santos Duke MD [ [facility] STAFF PHYSICIAN, Orthopaedic Surgical] - 02/20/25 1:15 pm Discharge Orders Discharge Orders: Discharge Order (Routine); Ordered 02/08/25 Ordered By: Scar Red DS: Diagnosis Discharge Diagnosis (1) Arthritis of left glenohumeral joint: Status: Acute (2) Left rotator cuff tear: Status: Acute (3) Tendinitis of long head of biceps brachii of left shoulder: Status: Acute
[2025-02-08] MEDS: Albuterol/Ipratropium 3 ML UPD VIAL UPD (07:20)
--- NOTE | 2025-02-08 07:25 | W.PM.OP ---
Operative Note Operative Note PRE-OP DIAGNOSIS: Left: 1. Partial rotator cuff tearing 2. End-stage glenohumeral arthritis 3. Long head of the biceps tendinopathy POST-OP DIAGNOSIS: same PROCEDURE: Left: 1. Reverse total shoulder arthroplasty, CPT # 11733 2. Open biceps tenodesis, CPT # 26744 The bioinformatics assistant was medically required as this procedure involves retraction, protection of neurovascular structures, and manipulation of multiple instruments and implants at the same time, which cannot be done without a skilled bioinformatics assistant. SURGEON: Santos Duke MEDICAL TRANSCRIPTION: Scar Red ANESTHESIA TYPE: Local By Surgeon and General LMA/ETT Refer to Anesthesia Record ESTIMATED BLOOD LOSS: 150 COMPLICATIONS: None Patient was transported to: PACU Patient's condition: stable Implants: [employer] modular glenoid system baseplate 24 mm, augmented 10 degree full wedge oblique [employer] modular glenoid system central post 25 mm [employer] modular glenoid system peripheral locking screws 36 mm inferior, 32 mm superior, 16 mm posterior, 16 mm anterior [employer] modular glenoid system glenosphere 39+4 mm lateralized [employer] humeral stem 135 degrees size 8 [employer] suture cup size 36 posterior offset [employer] humeral insert size 36 +6 mm /combo 39 Indications: Please see complete medical record for details. Findings: Significant long head biceps tenosynovitis, moderately sized superior humeral head bone cyst, moderate grade partial supraspinatus tearing, intact subscapularis. Significant glenohumeral arthritis inferior humeral head osteophyte. Procedure Description: In the operating room, general anesthesia was induced. The patient was positioned beachchair on the operating room table. All bony prominences were well-padded. Preoperative antibiotics were administered. The shoulder was prepped and draped in the usual sterile fashion for shoulder arthroplasty. The correct patient, procedure, and side of the procedure were all verified prior to incision. The deltopectoral approach was preinjected with 0.25% bupivacaine containing epinephrine and taken to the anterior shoulder. Care was taken to bluntly dissect the interval between the deltoid and pectoralis major muscles and to identify the cephalic vein within its fat stripe. The the vein was mobilized laterally. Subdeltoid space and conjoined tendon were freed of adhesions. The long head of the biceps tendon was identified just lateral to the lesser tuberosity. The uppermost margin of the pectoralis major tendon was released from the proximal humerus. The long head of the biceps tendon was tenodesed in situ using SutureTape in a aifiqn-ko-kzmbh fashion securing it superior margin the pectoralis major tendon. The biceps tendon was amputated and followed proximally to identify the rotator interval. A subscapularis peel was performed taking care to release the entire tendon in a full-thickness fashion from superior to inferior and lateral to medial while bringing the arm gradually into external rotation. Care was taken to avoid the axillary nerve by only working on the bone inferiorly and medially. The subscapularis was tagged using SutureTape in a Dameon-Sanju fashion and traction used confirm appropriate mobilization of the subscapularis tendon after gentle blunt dissection was used to free up the space anterior and posterior to it. The supraspinatus was debrided of mild leading edge and articular sided partial tearing. Appropriate coagulation was achieved especially interiorly. The anatomic neck was cut using an oscillating saw with the humeral head bone brought back table in case there was a need for future bone grafting. The proximal humerus was delivered from the wound with adduction and external rotation. The proximal humeral protection plate was used to provisionally confirm suture cup and glenosphere size. Reamers were started appropriately posterior to the bicipital groove taking care to maintain in line approach with the humeral canal. Sequential reaming was done from size 5 up to size 8. Next, the broaches were sequentially used to open the proximal humerus starting with a size 5 and going up to size 8 and sunk to the appropriate depth while maintaining approximately 25 degrees retroversion. There was good metaphyseal fit and rotational control of the proximal humerus with this size. The posterior offset guide was used to ream for the suture cup. Attention was then turned to the glenoid and retractors were placed and a circumferential release performed using the long head of the biceps remnant to remove soft tissue about the glenoid rim. Care was taken inferiorly to work on bone only between 5 and 7:00 o'clock and bluntly elevate tissues inferiorly. The VIP guide was placed on the glenoid and used to confirm placement and trajectory of the central guidepin. The guidepin was inserted and advanced just through the far cortex ensuring adequate central fixation length. The glenoid was prepared according to skimmer reverberatory specifications for a augmented baseplate and central post. The baseplate was impacted onto the glenoid surface. The locking guide was then used to drill and place appropriately lengthed inferior, superior, anterior, and posterior screws. The [id number] reamer was used to confirm adequate peripheral reaming. The glenosphere was applied with the tool salvage worker and then impacted to engage the Luis taper. It was then locked with appropriate countersinking of the setscrew. The glenosphere was inspected and found to have good fit, appropriate positioning, and no soft tissue or bony impingement. Attention was then turned back to the proximal humerus. The humeral trial cup was connected. Trialing was commenced with +3 mm liner. The shoulder was reduced and taken through range of motion. Trial components were built up to +6 mm liner to achieve good stability and appropriate tension on the deltoid and conjoined tension. The trial components were removed from the proximal humerus. The wound was copiously irrigated with normal saline. A 2 mm drill was used to drill 2 drill holes in the bicipital groove for later subscapularis repair. The the proximal humeral stem and suture cup were assembled and brought over the proximal humerus. Suture tapes were placed superiorly inferiorly at the medial and lateral aspect of the suture cup. The lateral tapes were brought out the drill holes. A small amount of vancomycin powder was distributed in the proximal humerus. The humeral component and suture cup were impacted into place. The trial liner was added, and the shoulder was reduced and range of motion, stability, and tension confirmed to be appropriate. The final liner was then connected and range of motion, stability, and tension confirmed. The shoulder was copiously irrigated with Betadine and normal saline. Vancomycin powder was distributed deeply about the shoulder and through subcutaneous tissues. The arm was placed in about 30 degrees of external rotation. The subscapularis was reduced and repaired using the pairs of SutureTape in a speed bridge type configuration. The arm was taken into more external rotation without any displacement of the subscapularis repair. The deltopectoral interval was approximated with 2-0 Monocryl burying the cephalic vein. Subcutaneous tissue was irrigated then closed using 2-0 Monocryl in a buried interrupted fashion. Skin was closed using 3-0 Monocryl in a buried subcuticular fashion. Skin glue was applied to the incision. A silver impregnated bandage was placed over the incision. The extremity was placed into a shoulder immobilizer. The patient awoke from anesthesia without complication and was taken to the recovery room in stable condition. Date of Procedure: 02/08/25
[2025-02-08] MEDS: ceFAZolin 2 GM/50 ML BAG IVPB (07:39)
[2025-02-08] MEDS: TRANEXAMIC ACID/SOD. CHL. 1,000 MG/100 ML BAG 600 MG IVPB (07:56)
[2025-02-08] MEDS: Bupivacaine 0.25% Pres-Free W/EPI 30 ML VIAL (08:18)
[2025-02-08] MEDS: Vancomycin 1,000 MG VIAL 1000 MG (08:21)
[2025-02-08] MEDS: Bupivacaine 0.25% Pres-Free 30 ML VIAL (09:32)
[2025-02-08] MEDS: Bupivacaine LIPOSOME/PF 133 MG/10 ML VIAL IJ (09:32)
[2025-02-08] MEDS: fentaNYL 100 MCG/2 ML VIAL IVP ×2 (10:43→10:49)
[2025-02-08] MEDS: HYDROmorphone 2 MG/ML SYR IVP ×3 (10:56→11:21)
--- NOTE | 2025-02-08 11:00 | DI.RAD_ITS ---
Exam(s) XR SHOULDER LT COMPLETE 2+V EXAM: XR SHOULDER LT COMPLETE 2+V CLINICAL HISTORY: Shoulder Arthritis. TECHNIQUE: 2D digital imaging was performed. COMPARISON: CR XR SHOULDER RT COMPLETE 2+V from 02/02/2024 FINDINGS: Postop views There is satisfactory position alignment of the components of the newly placed reverse prosthesis. No fracture or loosening evident. IMPRESSION: Satisfactory postop appearance DATA REPOSITORY: RADIATION DOSE DELIVERED:
[2025-02-08] MEDS: ceFAZolin 1 GM/50 ML BAG IVPB (11:12)
[2025-02-08] MEDS: Lactobacillus Acidophilus CAP 1 CAP PO (12:25)
--- NOTE | 2025-02-08 12:53 | W.ANESPOSTOP ---
Postoperative Evaluation Date, Time and Location Date Performed: 02/08/25 Time Performed: 11:40 Patient Location: PACU Vital Signs Most Recent Imported Vital Signs: Most Recent Vital Signs Temp Pulse Resp BP Pulse Ox 36.2 C L 61 16 138/59 L 100 02/08/25 11:48 02/08/25 11:48 02/08/25 11:48 02/08/25 11:48 02/08/25 11:48 Pain Score Most Recent Pain Score: Most Recent Pain Score Pain Level 7 02/08/25 11:48 Assessment Mental Status: Awake (Alert & Oriented to Patient Baseline) Airway and Respiratory Function: Patent airway with normal (patient baseline) respiratory exam Cardiovascular Function: Hemodynamically Stable Hydration Status: Adequately Hydrated Nausea & Vomiting: No Nausea or Vomiting Pain: Pain is Moderate or Severe Postoperative Pain Management: Pain being addressed with medication Peripheral Nerve Block: Patient did not receive a nerve block
== END 2025-02-08 14:39 | disposition home or self-care (01) ==
PROVIDERS: PCP Physician Assistant; Visit Provider Student in an Organized Health Care Education/Training Program
PROC: (CPT 23472; principal; 2025-02-08 07:30)
DX: M19.012 Primary osteoarthritis, left shoulder (principal); M75.102 Unspecified rotator cuff tear or rupture of left shoulder, not specified as traumatic; M75.22 Bicipital tendinitis, left shoulder
CPT/HCPCS: 23472; 23430; 73030; J0131; J0665; J0666; J0690; J1100; J1171; J1885; J2003; J2250; J2371; J2405; J2704; J3010; J3373; J3475; J7620

== ENCOUNTER 2025-02-15 15:26 | Emergency (ER) | payer OTHER, SELFPAY ==
[2025-02-15] VITALS (9 sets, daily range): BP systolic 107; BP diastolic 73; PULSE 80–165; RESP 12–20; TEMP 35.7; O2SAT 96–100
--- NOTE | 2025-02-15 15:15 | RT.EKG_ITS ---
APPROVED REPORT Exam: Resting ECG Reason for Exam: tachycardia Patient Location: E HR:163 bpm ECG Measurements Heart Rate 163 AXIS RI 59 P 0 QRSd 128 QRS 56 QT 291 T 52 QTc 480 Conclusion SUPRAVENTRICULAR TACHYCARDIA
--- NOTE | 2025-02-15 15:36 | W.ED.GENAD ---
Discharge Plan Disposition Patient Disposition: Home Condition: Improving Discharge Details Clinical Impression: Supraventricular tachycardia Primary Care Provider: Justin Medina ED Provider: Miguel Gabriel Home Meds and New Rx's Prescriptions: Continued propranolol 80 mg capsule,extended release 24 hr 80 mg PO DAILY Qty: 90 3RF Metamucil 3.4 gram/5.4 gram powder 1 tsp PO DAILY Rx Instructions: mix into at least 4 oz water or juice before administering magnesium oxide 500 mg capsule 500 mg PO DAILY lamotrigine 200 mg tablet 200 mg PO DAILY cholecalciferol (vitamin D3) 75 mcg (3,000 unit) tablet 2,400 unit PO DAILY modafinil 100 mg tablet 100 mg PO DAILY multivitamin Tablet 1 tab PO DAILY PRN levothyroxine 125 mcg capsule 137 mcg PO DAILY ipratropium-albuterol 0.5 mg-3 mg(2.5 mg base)/3 mL solution for nebulization 3 ml inhalation QID PRN (Reason: wheezing) Qty: 180 3RF sertraline [Zoloft] 25 mg tablet 100 mg PO DAILY Patient Comments: per patient azelastine 137 mcg (0.1 %) spray,non-aerosol 2 spray intranasal BID Patient Comments: USE 2 SPRAYS IN EACH NOSTRIL TWO TIMES A DAY polyethylene glycol 3350 [Miralax] 17 gram powder in packet 17 g PO DAILY celecoxib 200 mg capsule 200 mg PO DAILY Femring 1 EACH ring 1 ea VG DAILY Qty: 1 Patient Comments: use 1 ring every 3 months Rx Instructions: insert and leave in place for 3months lamotrigine [Lamictal] 25 mg tablet 50 mg PO DAILY montelukast 10 mg tablet 10 mg PO QHS pantoprazole 40 mg tablet,delayed release (DR/EC) 40 mg PO DAILY Vraylar 1.5 mg capsule 3 mg PO DAILY Nucala 100 mg/mL auto-injector 100 mg subcut Q4W Qty: 1 12RF Breztri Aerosphere 160-9-4.8 mcg/actuation HFA aerosol inhaler 2 inh inhalation BID Qty: 10.7 12RF oxycodone 5 mg tablet 5 - 10 mg PO Q4H MDD 30 mg PRN (Reason: Moderate to severe pain) Qty: 18 0RF tramadol 50 mg tablet 50 mg PO Q8H PRN (Reason: pain) Qty: 16 0RF albuterol sulfate [ProAir HFA] 200 PUFF HFA aerosol inhaler 2 puff Inhalation Q4H PRN PRN acetaminophen [Mapap Extra Strength] 500 MG tablet 1,000 mg PO TID Qty: 180 3RF Linzess 145 mcg capsule 290 mcg PO DAILY Patient Comments: TAKE ONE CAPSULE BY MOUTH EVERY DAY minocycline 100 mg capsule 100 mg PO BID 14 Days Qty: 28 0RF Rx Instructions: use with daily probiotic or yogurt Bio-K plus 50 billion cell capsule,delayed release(DR/EC) 1 cap PO DAILY 14 Days Qty: 14 0RF Discharge Instructions Instructions: Paroxysmal Supraventricular Tachycardia (DC) Stand Alone Forms: Portal Information Discharge Data Discharge Physician: Miguel Gabriel HPI General Date/Time Provider Initiated Documentation: 02/15/25 15:33. HPI Narrative: Patient who has a history of SVT back in January comes in complaining of palpitations patient has history of SVT and tried Valsalva maneuvers without success. Denies any chest pain denies any shortness of Related Data Home Medications Medication Instructions Recorded Confirmed estradiol acetate 0.1 mg/24 hr 1 ea vaginal DAILY ##1 06/13/14 02/15/25 vaginal ring (Femring) albuterol sulfate 90 mcg/actuation 2 puff inhalation Q4H PRN PRN 05/19/16 02/15/25 aerosol inhaler (ProAir HFA) acetaminophen 500 mg tablet (Mapap 1,000 mg (2 x 500 mg) PO TID #180 05/28/16 02/15/25 Extra Strength) tabs lamotrigine 25 mg tablet (Lamictal) 50 mg PO DAILY 10/07/21 02/15/25 montelukast 10 mg tablet 10 mg PO QHS 10/07/21 02/15/25 cholecalciferol (vitamin D3) 75 2,400 unit PO DAILY 06/25/22 02/15/25 mcg (3,000 unit) tablet modafinil 100 mg tablet 100 mg PO DAILY 06/25/22 02/15/25 pantoprazole 40 mg tablet,delayed 40 mg PO DAILY 12/17/23 02/15/25 release propranolol 80 mg capsule,24 80 mg PO DAILY #90 caps 12/28/23 02/15/25 hr,extended release levothyroxine 125 mcg capsule 137 mcg PO DAILY 05/01/24 02/15/25 multivitamin 1 tab PO DAILY PRN 05/01/24 02/15/25 ipratropium 0.5 mg-albuterol 3 mg 3 ml inhalation QID PRN wheezing 06/07/24 02/15/25 (2.5 mg base)/3 mL nebulization #180 mL soln cariprazine 1.5 mg capsule 3 mg PO DAILY 07/12/24 02/15/25 (Vraylar) sertraline 25 mg tablet (Zoloft) 100 mg PO DAILY 07/31/24 02/15/25 magnesium oxide 500 mg capsule 500 mg PO DAILY 08/18/24 02/15/25 psyllium husk 3.4 gram/5.4 gram 1 tsp PO DAILY 09/13/24 02/15/25 oral powder (Metamucil) mepolizumab 100 mg/mL subcutaneous 100 mg subcut Q4W #1 mL 10/04/24 02/15/25 auto-injector (Nucala) polyethylene glycol 3350 17 gram 17 g PO DAILY 10/11/24 02/15/25 oral powder packet (Miralax) celecoxib 200 mg capsule 200 mg PO DAILY 10/12/24 02/15/25 azelastine 137 mcg (0.1 %) nasal 2 spray intranasal BID 11/06/24 02/15/25 spray lamotrigine 200 mg tablet 200 mg PO DAILY 01/03/25 02/15/25 budesonide 160 mcg-glycopyr 9 2 inh inhalation BID #10.7 grams 01/11/25 02/15/25 mcg-formot 4.8 mcg/actuation HFA inhaler (Breztri Aerosphere) linaclotide 145 mcg capsule 290 mcg PO DAILY 02/07/25 02/15/25 (Linzess) L. acidophilus,casei,rhamnosus 50 1 cap PO DAILY 14 days #14 caps 02/08/25 02/15/25 billion cell capsule,delayed release (Bio-K plus) minocycline 100 mg capsule 100 mg PO BID prevent infection 14 02/08/25 02/15/25 days #28 caps oxycodone 5 mg tablet 5 - 10 mg (1 - 2 x 5 mg) PO Q4H 10/31/25 11/06/25 PRN Moderate to severe pain #18 tabs tramadol 50 mg tablet 50 mg PO Q8H PRN pain #16 tabs 02/14/25 02/15/25 Previous Rx's Medication Instructions Recorded acetaminophen 500 mg tablet (Mapap 1,000 mg (2 x 500 mg) PO TID #180 05/28/16 Extra Strength) tabs propranolol 80 mg capsule,24 80 mg PO DAILY #90 caps 12/27/ hr,extended release ipratropium 0.5 mg-albuterol 3 mg 3 ml inhalation QID PRN wheezing 06/07/24 (2.5 mg base)/3 mL nebulization #180 mL soln mepolizumab 100 mg/mL subcutaneous 100 mg subcut Q4W #1 mL 10/04/24 auto-injector (Nucala) budesonide 160 mcg-glycopyr 9 2 inh inhalation BID #10.7 grams 01/11/25 mcg-formot 4.8 mcg/actuation HFA inhaler (Breztri Medipacsphere) L. acidophilus,casei,rhamnosus 50 1 cap PO DAILY 14 days #14 caps 02/08/25 billion cell capsule,delayed release (Bio-K plus) minocycline 100 mg capsule 100 mg PO BID prevent infection 14 02/08/25 days #28 caps oxycodone 5 mg tablet 5 - 10 mg (1 - 2 x 5 mg) PO Q4H 02/09/25 PRN Moderate to severe pain #18 tabs tramadol 50 mg tablet 50 mg PO Q8H PRN pain #16 tabs 02/14/25 Allergies Allergy/AdvReac Type Severity Reaction Status Date / Time aspirin AdvReac Severe GI Bleeding Verified 02/15/25 15:32 topiramate (From Topamax) AdvReac Severe confusion Verified 02/15/25 15:32 droperidol AdvReac Mild can't hold Verified 02/15/25 15:32 still risperidone (From Risperdal) AdvReac Mild milk Verified 02/15/25 15:32 comes in General Stated Complaint: Palpitatns RISHI: 2 Review of Systems Narrative: Review of Systems: Constitutional: No fevers, chills, sweats Eye: No recent visual problems ENT: No ear pain, nasal congestion, sore throat Respiratory: No shortness of breath, cough Cardiovascular: No Chest pain, syncope Gastrointestinal: No nausea, vomiting, diarrhea Genitourinary: No hematuria Krishan/Lymph: Negative for bruising tendency, swollen lymph glands Endocrine: Negative for excessive thirst, excessive hunger Musculoskeletal: No back pain, neck pain, joint pain, muscle pain, decreased range of motion Integumentary: No rash, pruritus, abrasions Neurologic: Alert & oriented X 4 Psychiatric: No anxiety, depression Exam Narrative Exam Narrative: Exam; vitals signs as reported above normal Constitutional; In no acute distress, afebrile General: cooperative, healthy appearing, comfortable and no acute distress HEENT: Head: normal to inspection, no palpable skull fracture and normocephalic atraumatic Eyes: : appearance normal, both eyes and all related structures EOM intact bilaterally Pupils: PERRL : conjunctiva normal Direct ophthalmoscopy: normal light reflex, normal conjunctiva, normal visual acuity Ears: Normal TM, normal external canal Nose: normal no rhinorreha Neck no JVD, supple non tender Neck: normal visual inspection, full ROM and no lymphadenopathy Chest: normal inspection of the chest Respiratory : normal respiratory effort and able to speak in complete sentences no wheezing no rales Cardio tachycardic, rhythm: regular rhythm normal heart sounds S1 and S2 no murmurs, gallops, or rubs GI : normal to inspection, normal bowel sounds, soft, non tender, non distended, no organomegaly Back/Spine/ no CVA tenderness Thoracic/Lumbar Spine: no tenderness or deformities Skin no rashes or lesions Neuro: patient alert oriented x 4 and no meningeal signs, Cranial Nerves: CN's II-XI intact bilaterally, Cognition: normal cognition, Speech: speech normal, Gait: normal gait, Depp tendon reflexes normal 2+ muscle strength 5/5 bilaterally Extremities, no edema, full range of motion, normal strength ctal: Course Vital Signs Vital signs: Vital Signs Temperature 35.7 C L 02/15/25 15:28 Pulse 165 H 02/15/25 15:28 Respiratory Rate 20 02/15/25 15:28 Blood Pressure 107/73 02/15/25 15:28 Pulse Oximetry 96 02/15/25 15:28 Temperature 35.7 C L 02/15/25 15:28 Pulse 165 H 02/15/25 15:28 Respiratory Rate 20 02/15/25 15:28 Blood Pressure 107/73 02/15/25 15:28 Blood Pressure Position Sitting 02/15/25 15:28 Pulse Oximetry 96 02/15/25 15:28 Oxygen Delivery Method Room Air 02/15/25 15:28 Oxygen Flow Rate 0 02/15/25 15:28 Medical Decision Making MDM: Summary: Patient presents emergency department complaint of palpitations and is a second time she is in a supraventricular tachycardia. Adenosine 6 mg IV was given with complete resolution of the tachyarrhythmia and back to normal sinus rhythm. Patient had labs done which include 2 troponins that were negative. Patient will be discharged home and advised her at this time since the second time is happen to have a cardiology consultation and probably a consultation with the library technician. Data Review Analysis All the data on this patient was reviewed by me including laboratory and imaging studies as well as bedside studies performed by me Independent review of Studies Imaging Lab: Labs are unremarkable Risk Stratification: Patient SVT after chemical conversion with adenosine who will be discharged home Differential Diagnosis: 1. SVT 2. Rapid A-fib 3. Atrial flutter 4. 5. Consultants: Shared disposition: Patient send disposition agrees Impression: Medical Records Medical records reviewed: Yes I reviewed the patient's medical records. Lab Data Lab results reviewed: Yes I reviewed the patient's lab results. ECG Data Attestation: I personally reviewed and interpreted this ECG (s) as follows: Prior ECG tracings: available for review Interpretation: First EKG shows heart rate of [address]-T changes, post chemical cardioversion normal sinus rhythm heart rate [address]-T changes PFSH All Active Problems (Updated 02/15/25 @ 17:00 by Miguel Gabriel MD) Supraventricular tachycardia (Chronic) Tendinitis of long head of biceps brachii of left shoulder (Acute) Callus (Acute) Bronchiectasis (Acute) Left rotator cuff tear (Acute) Degenerative joint disease of right hip (Chronic) Arthritis of left glenohumeral joint (Acute) DEPO MEDROL 08/18/24 Lung collapse (Acute) RML Ingrown toenail of right foot (Acute) Bunion, right foot (Acute) Squamous cell carcinoma of lower leg (Acute ~01/19/24) left strickland positive margins at base on recent shave bx Abnormal CT scan of lung (Acute) Rash (Acute) Persistent cough (Acute) Tremor (Acute) chronic Neck pain (Acute) Obstructed diaphragmatic hernia (Acute) Parkinsonism (Acute) Hyperthyroidism (Chronic) Onychomycosis (Acute) Pain in left foot (Acute) Hammertoe of left foot (Acute) Bipolar affective disorder, currently active (Acute) Hypothyroidism (Chronic) Vitamin D deficiency (Acute) Allergic rhinitis (Acute) Asthma (Chronic) Osteoarthritis of left knee (Acute) Patellofemoral disorder of right knee (Acute) Iliotibial band syndrome, right leg (Acute) DEPO MEDROL 08/21/24 Vaginal atrophy (Acute 06/12/14) Pt used FemRing in past, changed to Vagifem and now has resumed FemRing use again. Primary osteoarthritis of right knee (Acute 03/12/16) Postnasal drip (Acute 11/12/14) Female perineal laxity (Acute 09/12/15) Essential tremor (Acute 04/27/17) Other disorders of Eustachian tube (Acute 04/17/13) Fibromyalgia (Acute) Sleep apnea (Acute) Medical History Hypothyroidism Atrophic vaginitis Dyspareunia (06/25/14) Hypertrophy of labia minora (11/12/14) Lichen sclerosus (06/12/14) dx in past. recently experiencing increased discomfort with intercourse Menopausal symptoms (06/12/14) increased in 2014 since stopping Femring. S/P Hysterectomy with ovarian conservation in past. ? coincidence vs effect of FemRing? Vulvar fissure (05/31/15) Serous otitis media (04/17/13) Otitis externa (06/18/14) Allergic rhinitis due to other allergen (02/12/14) Allergy Tested at [facility]-Dr. Chaudhari 05/14/14 Chronic constipation Lactose intolerance in adult Hiatal hernia Verruca plana Dysphagia Knee joint pain History of neck pain Breast cyst Mammogram abnormal Vaginal atrophy Femring with good results. Surgical History History of appendectomy 12/12/1995 History of colonoscopy 11/11/1999 History of toe surgery ~1979's, surgical correction of hammertoes on toes #2-#5 bi-laterally. History of total right knee replacement Status post osteotomy mandibular osteotomy--1990 Hx of exploratory laparotomy Abdominal hysterectomy with distal ileum and transverse colon resection d/t possible volvulus-- 1995 Family History Mother Lupus Lung cancer Father COPD (chronic obstructive pulmonary disease) Social History Smoking/Tobacco Use Status: Never Smoking risk assessment performed?: Yes Alcohol Intake: never Drug use: Never Substance use type: does not use Housing: house Do you feel safe at home: Yes Do you feel safe in your relationship?: Yes
[2025-02-15] MEDS: Adenosine 6 MG/2 ML VIAL IVP (15:50)
[2025-02-15 15:51] LABS: Abs Immature Grans 0.09 10^3/uL (0.0-0.06); HCT 39.2 % (36.0-46.0); HGB 12.9 g/dL (11.2-15.7); Immature Grans % 0.7 %; MCH 30.4 pg (27.0-33.0); MCHC 32.9 % (32.0-36.0); MCV 93 fL (80-95); MPV 9.5 fL (8.0-11.0); Platelet Count 330 10^3/uL (130-400); RBC 4.24 10^6/uL (3.93-5.22); RDW 12.7 % (11.7-14.6); RDW-SD 43.0 fL; WBC 12.53 10^3/uL (4.4-10.8)
--- NOTE | 2025-02-15 16:00 | RT.EKG_ITS ---
APPROVED REPORT Exam: Resting ECG Reason for Exam: s/p cardioversion Patient Location: E HR:85 bpm ECG Measurements Heart Rate 85 AXIS OH 184 P 65 QRSd 85 QRS 61 QT 382 T 59 QTc 455 Conclusion Sinus rhythm...normal P axis, V-rate 60- 99
[2025-02-15 16:24] LABS: ALT 33 U/L (14-59); AST 33 U/L (15-37); Albumin 3.3 g/dL (3.4-5.0); Alkaline Phosphatase 90 U/L (46-116); Anion Gap 9.1 mmol/L (3-11); BUN 28 mg/dL (7-18); Bilirubin, Total 0.3 mg/dL (0.2-1.0); CO2 26.9 mmol/L (21.0-32.0); Calcium 9.2 mg/dL (8.5-10.1); Chloride 104 mmol/L (98-107); Glucose 163 mg/dL (74-106); Potassium 4.3 mmol/L (3.5-5.1); Sodium 140 mmol/L (136-145); Total Protein 7.6 g/dL (6.4-8.2); Troponin I 6 ng/L (<or=51)
[2025-02-15 17:08] LABS: Troponin I 13 ng/L (<or=51)
== END 2025-02-15 17:23 | disposition home or self-care (01) ==
PROVIDERS: Emergency Provider Emergency Medicine Emergency Medical Services; PCP Physician Assistant
DX: I47.10 Supraventricular tachycardia, unspecified (principal)
CPT/HCPCS: 99283; 99284; 96374; 36415; 80053; 93005; 84484; 85025; 93010; J0153

== ENCOUNTER 2025-02-20 13:47 | Outpatient (CLI) | payer OTHER, SELFPAY ==
--- NOTE | 2025-02-20 13:00 | DI.RAD_ITS ---
Exam(s) XR SHOULDER LT COMPLETE 2+V EXAM: XR SHOULDER LT COMPLETE 2+V INDICATION: F/U LEFT RTSA. COMPARISON: CR XR SHOULDER LT COMPLETE 2+V from 02/08/2025 TECHNIQUE: 2D digital imaging was performed. Two views. FINDINGS: There is stable alignment of the reverse shoulder prosthesis. There are no abnormal surrounding bony lucencies. DATA REPOSITORY: RADIATION DOSE DELIVERED:
== END 2025-02-20 13:48 | disposition home or self-care (01) ==
LOC: DIORS 13:48
PROVIDERS: PCP Physician Assistant; Visit Provider Student in an Organized Health Care Education/Training Program
DX: M75.102 Unspecified rotator cuff tear or rupture of left shoulder, not specified as traumatic (principal); M19.012 Primary osteoarthritis, left shoulder
CPT/HCPCS: 73030

== ENCOUNTER → 2025-03-20 00:36 | Outpatient (CLI) | payer OTHER, SELFPAY ==
--- NOTE | 2025-03-20 | DI.US_ITS ---
APPROVED REPORT EXAM: Comprehensive 2D, Doppler, and color-flow Echocardiogram Patient Location: Out-Patient Inspector Cold Working: Jacquelyn Muller RDCS (AE) Indications: Supraventricular tachycardia Other Information Study Quality: Good Conclusion Normal left ventricular wall thickness and chamber size. Ejection fraction is 60%. Wall motion is normal Normal right ventricular size and function Both atria are normal in size There are no structural valvular abnormalities Trace aortic mitral and tricuspid regurgitation Wall motion Left Ventricle The left ventricle is normal size. The left ventricular systolic function is normal. The left ventricular ejection fraction is within the normal range. There is normal left ventricular wall thickness. There is normal LV segmental wall motion. There is no ventricular septal defect visualized. LVEF is 60%. Right Ventricle The right ventricle is normal size. The right ventricular systolic function is normal. Atria The left atrium size is normal. The right atrium size is normal. The interatrial septum is intact with no evidence for an atrial septal defect. Aortic Valve The aortic valve is normal in structure. Aortic valve is trileaflet. There is no aortic valvular stenosis. Trace aortic regurgitation. Mitral Valve The mitral valve is normal in structure. No evidence of mitral valve stenosis. Trace mitral regurgitation. Tricuspid Valve The tricuspid valve is normal in structure. There is no tricuspid valve stenosis. Trace tricuspid regurgitation. Unable to assess PA pressure. Pulmonic Valve The pulmonary valve is normal in structure. There is no pulmonic valvular stenosis. There is no pulmonic valvular regurgitation. Great Vessels The aortic root is normal in size. The ascending aorta is normal in size. Aortic arch is not well visualized. IVC is normal in size and collapses >50% with inspiration. Pericardium There is no pericardial effusion. 2D Dimensions IVSD d PLAX 0.81 cm F: 0.6-1.0 Ao Root d 3.50 cm F: 2.7 - 3.3 LVPW d PLAX 0.83 cm F: 0.6 - 1.0 Ao Asc Diam d 3.11 cm F: 2.3 - 3.1 LVID d PLAX 4.70 cm F: 3.8 - 5.2 LVDs 3.20 cm F: 2.2 - 3.5 LV EF Teichholz 60.5 % FS 32.25 % LV EDV (Teich) 100.1 mL LV ESV (Teich) 39.6 mL M-Mode TAPSE 3.30 cm (M/F) >1.7 Auto EF LV EDV A4C 113.5 mL LV EDV A2C 101.1 mL LV EDV BP 107.1 mL LV ESV A4C 44.4 mL LV ESV A2C 39.5 mL LV ESV BP 42.1 mL LVEF(%) A4C 60.9 % LVEF(%) A2C 61.0 % LVEF(%) BP 60.7 % LV SV A4C 69.1 ml LV SV A2C 61.6 ml LV SV BP 65.0 ml LV CO A4C 4.4 L/min LV CO A2C 4.0 L/min LV CO BP 4.2 L/min HR A4C 63.83 BPM HR A2C 64.40 BPM LV EDV Index (BP) LA Volume LA Length A4C 4.0 cm LA Length A2C 5.5 cm LA Area A4C s 12.11 cm2 LA Area A2C s 17.59 cm2 LA Vol A4C A-L 31.28 mL LA Vol A2C A-L 47.51 mL LA Vol Biplane A-L 45.4 mL LA Vol/BSA A4C A-L LA Vol/BSA A2C A-L LA Vol/BSA BP A-L 22.4 mL/m2 LA Vol A4C MOD 28.3 mL LA Vol A2C MOD 44.8 mL LA Vol BP MOD 40.9 mL RA Volume RA Area A4C 7.9 cm2 RA ESV A4C (A-L) 17.2mL RA Vol/BSA A4C A-L RA Length A4C 3.0 cm RA ESV A4C (MOD) 16.4mL LV Diastology MV E' medial 0.078 (>0.07 m/s) MV E Vmax 0.72 (0.4-1.3 m/s) MV E/E' MED 9.25 (<14) MV A Vmax 0.60 (0.4-1.3 m/s) MV E' lateral 0.103 (>0.1 m/s) E/A Ratio 1.2 MV E/E' LAT 7.00 (<14) MV E' Average 0.090 m/s MV E/E'(average) 7.97 Aortic Valve AoV Vmax 1.09 m/s LVOT Vmax 0.87 m/s AoV Peak Grad 4.8 mmHg LVOT Peak Grad 3.0 mmHg AoV Area (Vmax) 2.43 cm2 LVOT VTI 0.230 m AoV VTI 0.295 m LVOT Mean Grad 1.7 mmHg AoV Mean Max. 0.78 m/s LVOT SV 70.24 mL AoV Mean Grad 2.8 mmHg LVOT Diam s 1.95 cm AoV Area (VTI) 2.38 cm2 AV Regurg Peak Gr. 4.76 mmHg Velocity Ratio 0.80 Mitral Valve MV DT 229 (160-240 msec) MV Vmax TIPS 0.81 m/s MV Mean Grad 1.2 (<2mmHg) MV VTI 0.265 m Pulmonary Valve PV Vmax 0.81 (0.5-1.5 m/s) RVOT Vmax 0.69 m/s PV Peak Grad 2.6 mmHg RVOT Peak Gr. 1.9 mmHg PV Mean Max 0.61 m/s RVOT VTI 0.171 m PV Mean Grad 1.6 mmHg RVOT Mean Gr. 1.0 mmHg Tricuspid Valve RA Pressure 3.00 mmHg TV S' 0.12 m/s
== END ==
LOC: DI 00:36
PROVIDERS: PCP Physician Assistant; Visit Provider Internal Medicine
DX: I47.10 Supraventricular tachycardia, unspecified (principal)
CPT/HCPCS: 93306

== ENCOUNTER 2025-03-27 08:59 | Outpatient (REF) | payer OTHER, SELFPAY ==
[2025-03-27 17:11] LABS: Hemoglobin A1C 5.0 % (<5.7)
== END 2025-03-27 09:00 | disposition home or self-care (01) ==
LOC: NCHCN 08:59
PROVIDERS: PCP Physician Assistant; Visit Provider Physician Assistant
DX: R73.9 Hyperglycemia, unspecified (principal)
CPT/HCPCS: 83036